=== PATIENT | female | born 1955 | race Caucasian/White ===

== ENCOUNTER 2016-07-03 15:29 | Emergency (ER) | payer OTHER ==
[~2016-07-03] VITALS: Ht 167.6 cm; Wt 89.1 kg
[~2016-07-03 15:29] MED LIST: CLON0.5T3 PO; HYDR-5688 PO; NUTR-7 PO; ONDA4TAB7 SL
[2016-07-03 15:35] VITALS: TEMP 36.6; Ht 167.6 cm; Wt 89.1 kg
[2016-07-03 16:25] LABS: BASO % 0.4 %; BASO ABS # 0.03 K/uL (0-0.2); COMPLETE YES; EOS % 2.3 %; HEMATOCRIT 41.9 % (37-47); IG% 0.3 %; LYMPH % 34.2 %; LYMPH ABS # 2.42 K/uL (1.2-3.4); MEAN CELL VOLUME 90.3 fL (80-100); MEAN CORPUSCULAR HEMOGLOBIN 30.4 pg (25-34); MEAN CORPUSCULAR HGB CONC 33.7 g/dl (32-36); MEAN PLATELET VOLUME 11.7 fL (7.4-10.4); MONO % 5.1 %; NEUT % 57.7 %; PLATELET COUNT 186 K/uL (130-400); RED BLOOD COUNT 4.64 M/uL (4.2-5.4); WHITE BLOOD COUNT 7.07 K/uL (4.8-10.8)
[2016-07-03] MEDS ORDERED: ONDANSETRON INJ 2 MG/ML 2 ML VIAL IV STA (16:28)
[2016-07-03] MEDS ORDERED: SODIUM CHLORIDE 0.9% 1000ML 1,000 ML IV STA (16:28)
[2016-07-03] MEDS ORDERED: KETOROLAC TROMETHAMINE 30 MG/ML VIAL IV STA (16:28)
--- NOTE | 2016-07-03 16:41 | EMERGENCY ROOM VISIT NOTE ---
History Report prepared by Palak: Lc Ellis Under the Supervision of: Dr. Kevin Perales D.O. First contact with patient: 16:04 Chief Complaint: NAUSEA Stated Complaint: NAUSEA History of Present Illness The patient is a 61 year old female who presents to the Emergency Room with complaints of waxing and waning light headedness that she has been experiencing for the past three weeks. The patient states that she is not dizzy, but was having a hard time keeping her balance. The light headedness is constant when it onsets; there is nothing that makes it better or worse. She has also been getting headaches frequently this past week. Her headaches begin in the crown of her head and radiate down in to her neck. The patient is currently experiencing her light headedness, but does not have a headache. She also made note of an episode in the past when she was diagnosed with a bowel obstruction. During this episode she experienced sternal chest pain. She is currently experiencing this chest pain over her sternum as well. all taking off her shirt. She has no shortness of breath or radiation with this. It is currently resolved. She gets no exertional symptoms. She is no history of diabetes, hypertension, hyperlipidemia, CAD or previous heart attacks. She denies change in vision, fevers, nausea, vomiting, diarrhea, pain with urination, and melena. 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 A total of 10 systems reviewed and were otherwise negative. Past Medical & Surgical Surgical Problems: (1) History of appendectomy (2) History of cholecystectomy Family History Cancer Diabetes mellitus Heart disease Hypertension Kidney stones Social History Smoking Status: Former Smoker Alcohol Use: occasionally Marital Status: single Housing Status: lives alone Occupation Status: employed Current/Historical Medications Scheduled Clonazepam (Clonazepam), 0.25 MG PO Q4 Scheduled PRN Ibuprofen (Advil), 200 MG PO Q8 PRN for Pain Allergies Coded Allergies: Fluoxetine (Verified Allergy, Intermediate, swelling and rash, 07/03/16) Metronidazole (Verified Allergy, Unknown, swelling/hives, 07/03/16) Physical Exam Vital Signs Date Time Temp Pulse Resp B/P Pulse Ox O2 Delivery O2 Flow Rate FiO2 07/03/16 19:08 61 18 161/95 98 07/03/16 17:28 52 16 140/75 100 Room Air 07/03/16 16:30 58 07/03/16 15:35 36.6 62 20 160/94 97 Room Air Physical Exam GENERAL: Sitting up in bed, well nourished, no distress, non-toxic EYE EXAM: normal conjunctiva, PERRL and EOM's intact EARS: Cerumen impacted bilaterally, unable to visualize TMs. OROPHARYNX: no exudate, no erythema, lips, buccal mucosa, and tongue normal and mucous membranes are moist NECK: supple, no nuchal rigidity, no adenopathy, non-tender LUNGS: Clear to auscultation. Normal chest wall mechanics HEART: no murmurs, S1 normal and S2 normal ABDOMEN: abdomen soft, non-tender, normo-active bowel sounds, no masses, no rebound or guarding. BACK: Back is symmetrical on inspection and there is no deformity, no midline tenderness, no CVA tenderness. SKIN: no rashes and no bruising UPPER EXTREMITIES: upper extremities are grossly normal. LOWER EXTREMITIES: No pitting edema. NEURO EXAM: Normal sensorium, cranial nerves II-XII intact, normal speech, no weakness of arms, no weakness of legs. No drift. Finger to nose intact. Gross sensation intact. Rapid alternating movements of the upper extremities intact. Medical Decision & Procedures ER Provider Diagnostic Interpretation: Xray results per the radiologist and my interpretation. Other results have been interpreted by the radiologist and reviewed by me. ABDOMEN AND PELVIS CT WITH IV CONTRAST CT DOSE: HISTORY: Pain diffuse abd pain TECHNIQUE: Multiaxial CT images of the abdomen and pelvis were performed following the use of intravenous contrast. COMPARISON STUDY: 02/19/2015 FINDINGS: Lung bases are clear. Several hepatic microcysts unchanged. Gallbladder is negative for distention. Pancreas appears uniform. Spleen is unremarkable. Cortical scarring of the kidneys unchanged in the prior study. No evidence for obstructive change to the kidneys. There bowel pattern within the abdomen and pelvis is nonobstructive. Atelectatic change at the arterial vasculature of the abdomen and pelvis unaltered from the prior study. No major new or interval finding. Short segment right common iliac artery stent placement. No evidence for free fluid within the pelvic cul-de-sac. Nonobstructive bowel pattern. Slight bladder wall trabeculation. IMPRESSION: Chronic change. No acute process. Electronically signed by: Edwin Hollins M.D. 07/03/2016 5:48 PM Dictated Date/Time: 07/03/2016 5:44 PM CHEST ONE VIEW PORTABLE CLINICAL HISTORY: dizzy mental status change COMPARISON STUDY: No previous studies for comparison. FINDINGS: The bones soft tissues and hemidiaphragms are normal. The cardiomediastinal silhouette is normal. The lungs are clear. The pulmonary vasculature is normal. IMPRESSION: Negative chest. Electronically signed by: Edwin Hollins M.D. 07/03/2016 4:56 PM Dictated Date/Time: 07/03/2016 4:[address] NON[address]AST CT DOSE: 1697.90 mGy.cm HISTORY: Mental status change dizzy TECHNIQUE: Multiaxial CT images of the head were performed without the use of intravenous contrast. Comparison: None. Findings: The paranasal sinuses and mastoid air cells are clear. The calvarium and skull base are intact. The ventricles and sulci are within normal limits. There is no mass, hematoma, midline shift, or acute infarct. Impression: No acute intracranial abnormality. Electronically signed by: Edwin Hollins M.D. 07/03/2016 5:43 PM Dictated Date/Time: 07/03/2016 5:42 PM Laboratory Results 07/03/16 16:15 Red Blood Count 4.64, Mean Corpuscular Volume 90.3, Mean Corpuscular Hemoglobin 30.4, Mean Corpuscular Hemoglobin Concent 33.7, Mean Platelet Volume 11.7, Neutrophils (%) (Auto) 57.7, Lymphocytes (%) (Auto) 34.2, Monocytes (%) (Auto) 5.1, Eosinophils (%) (Auto) 2.3, Basophils (%) (Auto) 0.4, Neutrophils # (Auto) 4.08, Lymphocytes # (Auto) 2.42, Monocytes # (Auto) 0.36, Eosinophils # (Auto) 0.16, Basophils # (Auto) 0.03 07/03/16 16:15 Test 07/03/16 16:15 07/03/16 16:50 07/03/16 18:12 White Blood Count 7.07 K/uL (4.8-10.8) Red Blood Count 4.64 M/uL (4.2-5.4) Hemoglobin 14.1 g/dL (12.0-16.0) Hematocrit 41.9 % (37-47) Mean Corpuscular Volume 90.3 fL (80-100) Mean Corpuscular Hemoglobin 30.4 pg (25-34) Mean Corpuscular Hemoglobin Concent 33.7 g/dl (32-36) Platelet Count 186 K/uL (130-400) Mean Platelet Volume 11.7 fL (7.4-10.4) Neutrophils (%) (Auto) 57.7 % Lymphocytes (%) (Auto) 34.2 % Monocytes (%) (Auto) 5.1 % Eosinophils (%) (Auto) 2.3 % Basophils (%) (Auto) 0.4 % Neutrophils # (Auto) 4.08 K/uL (1.4-6.5) Lymphocytes # (Auto) 2.42 K/uL (1.2-3.4) Monocytes # (Auto) 0.36 K/uL (0.11-0.59) Eosinophils # (Auto) 0.16 K/uL (0-0.5) Basophils # (Auto) 0.03 K/uL (0-0.2) RDW Standard Deviation 43.2 fL (36.4-46.3) RDW Coefficient of Variation 13.2 % (11.5-14.5) Immature Granulocyte % (Auto) 0.3 % Immature Granulocyte # (Auto) 0.02 K/uL (0.00-0.02) Anion Gap 9.0 mmol/L (3-11) Est Creatinine Clear Calc Drug Dose 78.1 ml/min Estimated GFR () 85.7 Estimated GFR (Non- 74.0 BUN/Creatinine Ratio 14.4 (10-20) Calcium Level 9.0 mg/dl (8.5-10.1) Total Bilirubin 0.4 mg/dl (0.2-1) Direct Bilirubin < 0.1 mg/dl (0-0.2) Aspartate Amino Transf (AST/SGOT) 26 U/L (15-37) Alanine Aminotransferase (ALT/SGPT) 40 U/L (12-78) Alkaline Phosphatase 101 U/L (45-117) Total Protein 7.9 gm/dl (6.4-8.2) Albumin 3.9 gm/dl (3.4-5.0) Lipase 148 U/L (73-393) Urine Color YELLOW Urine Appearance CLEAR (CLEAR) Urine pH 5.0 (4.5-7.5) Urine Specific Ponce 1.005 (1.000-1.030) Urine Protein NEG (NEG) Urine Glucose (UA) NEG (NEG) Urine Ketones NEG (NEG) Urine Occult Blood TRACE (NEG) Urine Nitrite NEG (NEG) Urine Bilirubin NEG (NEG) Urine Urobilinogen NEG (NEG) Urine Leukocyte Esterase NEG (NEG) Urine WBC (Auto) 0 /hpf (0-5) Urine RBC (Auto) 0-4 /hpf (0-4) Urine Hyaline Casts (Auto) 0 /lpf (0-5) Urine Epithelial Cells (Auto) 0-5 /lpf (0-5) Urine Bacteria (Auto) NEG (NEG) Troponin I < 0.015 ng/ml (0-0.045) Laboratory results per my review. Medications Administered Medications (Trade) Dose Ordered Sig/Vikas Route Start Time Stop Time Status Last Admin Dose Admin Sodium Chloride (Nss 1000ml) 1,000 ml @ 999 mls/hr Q1H1M STAT IV 07/03/16 16:28 07/03/16 17:28 DC 07/03/16 16:45 999 MLS/HR Ondansetron HCl (Zofran Inj) 4 mg NOW STAT IV 07/03/16 16:28 07/03/16 16:30 DC 07/03/16 16:45 4 MG Ketorolac Tromethamine (Toradol Inj) 30 mg NOW STAT IV 07/03/16 16:28 07/03/16 16:31 DC 07/03/16 16:48 30 MG ECG Indication: weakness Rate (beats per minute): 52 Rhythm: sinus bradycardia Findings: Q waves (Septal), no ectopy Comparison ECG Date: no prior available ED Course ED COURSE: Vital signs were reviewed and showed tachycardiac heart rate. The patients medical record was reviewed The above diagnostic studies were performed and reviewed. ED treatments and interventions as stated above. 1617: The patient was evaluated in room B12. A complete history and physical examination was performed. 1628: Ordered Toradol 30 mg IV, Zofran 4 mg IV, Sodium Chloride 1000 mL @ 999 mL /hr IV. 1731: I checked on the patient at this time, she was on her way to CT. 1802: I checked on the patient at this time, she was resting in bed. 1846: Upon reevaluation, the patient is feeling well.I discussed my findings with the patient and she understands and agrees with the treatment plan. Based on the patients age, coexisting illnesses, exam and lab findings the decision to treat as an outpatient was made. The patient remained stable while under my care. The patient appeared well at the time of discharge. Medical Decision Differential diagnosis: Etiologies such as migraine headache, meningitis, sinusitis, CO exposure, ICH, SAH, infection, tumor, headache, sinus thrombosis, arterial dissection, as well as others were entertained. Patient is a 61-year-old female who presents the ER for abdominal discomfort which she notes occurs after eating something has been present for the past several months. She does follow with GI for this. She also presents for lightheadedness which is been present for the past week. She notes it comes and goes intermittently throughout the day. She denies any weakness or numbness in arms or legs. She doesn't mild headache today. No fevers. No cough or runny nose. No stiff neck. No signs of meningitis or encephalitis. She is completely neurologically intact. No cerebellar symptoms on exam. She is able to walk without difficulty. CBC along with BMP, LFTs, bilirubin and lipase are negative. Troponins are negative 2 with an unremarkable EKG. Chest x-ray along with CT head and abdomen pelvis was normal. Patient was updated regards to her symptoms. I do believe that this is likely secondary to her poor by mouth intake as she has not been eating and drinking much recently. Her symptoms did improve following a bolus normal saline and Zofran. Discussed with Pt concerning signs and symptoms to watch out for. Pt was instructed to follow up with their PCP and discussed with the patient their option to return to the ED at anytime for persistent or worsening symptoms. The appropriate anticipatory guidance and out-patient management, including indications for return to the emergency department, were explained at length to the patient and understood. Impression Primary Impression: Diffuse abdominal pain Additional Impression: Light headed Scribe Attestation The scribe's documentation has been prepared under my direction and personally reviewed by me in its entirety. I confirm that the note above accurately reflects all work, treatment, procedures, and medical decision making performed by me. Departure Information Dispostion Home / Self-Care Referrals Donald Rowe M.D. (PCP) Forms HOME CARE DOCUMENTATION FORM, IMPORTANT VISIT INFORMATION Patient Instructions [facility] Additional Instructions Please follow up with your primary care doctor with in the next 24 hours. Any worsening of your symptoms, please return to the ED immediately. This includes passing out, worsening headache, change in vision, weakness in your arms or legs , persistent nausea vomiting, or any other concerning signs or symptoms from your standpoint. Please follow up with your nutrition partner. Problem Qualifiers
[2016-07-03] MEDS ORDERED: OPTIRAY 320 IV PRN (16:45)
--- NOTE | 2016-07-03 16:57 | DIAGNOSTIC IMAGING REPORT ---
CHEST ONE VIEW PORTABLE CLINICAL HISTORY: dizzy mental status change COMPARISON STUDY: No previous studies for comparison. FINDINGS: The bones soft tissues and hemidiaphragms are normal. The cardiomediastinal silhouette is normal. The lungs are clear. The pulmonary vasculature is normal. IMPRESSION: Negative chest. Electronically signed by: Edwin Hollins M.D. 07/03/2016 4:56 PM Dictated Date/Time: 07/03/2016 4:56 PM
[2016-07-03] MEDS ORDERED: KLN5X PO (17:01)
[2016-07-03] MEDS ORDERED: IBUP-1050 PO (17:02)
[2016-07-03 17:06] LABS: ALT/SGPT 40 U/L (12-78); AST/SGOT 26 U/L (15-37); BLOOD UREA NITROGEN 12 mg/dl (7-18); BUN/CREATININE RATIO 14.4 (10-20); CARBON DIOXIDE 26 mmol/L (21-32); CHLORIDE 109 mmol/L (98-107); CREATININE 0.85 mg/dl (0.60-1.20); GLUCOSE 90 mg/dl (70-99); SODIUM 144 mmol/L (136-145)
[2016-07-03 17:07] LABS: MANUAL MICROSCOPIC REQUIRED? NO; REVIEW REQ? NO; URINE APPEARANCE CLEAR (CLEAR); URINE BILIRUBIN NEG (NEG); URINE COLOR YELLOW; URINE EPITHELIAL CELL AUTO 0-5 /lpf (0-5); URINE NITRITE NEG (NEG); URINE SPECIFIC GRAVITY 1.005 (1.000-1.030); UROBILINOGEN NEG (NEG); ZZUR CULT IF INDIC CLEAN CATCH NO
[2016-07-03 17:11] LABS: ALKALINE PHOSPHATASE 101 U/L (45-117)
--- NOTE | 2016-07-03 17:44 | DIAGNOSTIC IMAGING REPORT ---
HEAD CT NONCONTRAST CT DOSE: 1697.90 mGy.cm HISTORY: Mental status change dizzy TECHNIQUE: Multiaxial CT images of the head were performed without the use of intravenous contrast. Comparison: None. Findings: The paranasal sinuses and mastoid air cells are clear. The calvarium and skull base are intact. The ventricles and sulci are within normal limits. There is no mass, hematoma, midline shift, or acute infarct. Impression: No acute intracranial abnormality. Electronically signed by: Edwin Hollins M.D. 07/03/2016 5:43 PM Dictated Date/Time: 07/03/2016 5:42 PM
--- NOTE | 2016-07-03 17:50 | DIAGNOSTIC IMAGING REPORT ---
ABDOMEN AND PELVIS CT WITH IV CONTRAST CT DOSE: HISTORY: Pain diffuse abd pain TECHNIQUE: Multiaxial CT images of the abdomen and pelvis were performed following the use of intravenous contrast. COMPARISON STUDY: 02/19/2015 FINDINGS: Lung bases are clear. Several hepatic microcysts unchanged. Gallbladder is negative for distention. Pancreas appears uniform. Spleen is unremarkable. Cortical scarring of the kidneys unchanged in the prior study. No evidence for obstructive change to the kidneys. There bowel pattern within the abdomen and pelvis is nonobstructive. Atelectatic change at the arterial vasculature of the abdomen and pelvis unaltered from the prior study. No major new or interval finding. Short segment right common iliac artery stent placement. No evidence for free fluid within the pelvic cul-de-sac. Nonobstructive bowel pattern. Slight bladder wall trabeculation. IMPRESSION: Chronic change. No acute process. Electronically signed by: Edwin Hollins M.D. 07/03/2016 5:48 PM Dictated Date/Time: 07/03/2016 5:44 PM
[2016-07-03 19:08] VITALS: BP 161/95; PULSE 61; O2SAT 98
[2016-11-17] MEDS ORDERED: DICL-201 PO (14:33)
== END 2016-07-03 19:08 | disposition home or self-care (01) ==
LOC: C.EDB 15:31
DX: R10.84 Generalized abdominal pain (principal); R42 Dizziness and giddiness; Z87.891 Personal history of nicotine dependence

== ENCOUNTER 2016-07-30 12:54 | Emergency (ER) | payer OTHER ==
[~2016-07-30] VITALS: Ht 167.6 cm; Wt 86.0 kg
[~2016-07-30 12:54] MED LIST changes: -CLON0.5T3 PO; -HYDR-5688 PO; +IBUP-1050 PO; +KLN5X PO; -NUTR-7 PO; -ONDA4TAB7 SL
[2016-07-30 12:56] VITALS: TEMP 36.6; Ht 167.6 cm; Wt 86.0 kg
[2016-07-30] MEDS ORDERED: SODIUM CHLORIDE 0.9% 1000ML 1,000 ML IV STA (13:04)
[2016-07-30] MEDS ORDERED: ONDANSETRON 8 MG/54 ML D5W IV ONE (13:30)
[2016-07-30 13:34] LABS: BASO % 0.4 %; BASO ABS # 0.03 K/uL (0-0.2); COMPLETE YES; EOS % 2.7 %; HEMATOCRIT 42.4 % (37-47); IG% 0.1 %; LYMPH % 21.9 %; LYMPH ABS # 1.82 K/uL (1.2-3.4); MEAN CELL VOLUME 89.8 fL (80-100); MEAN CORPUSCULAR HEMOGLOBIN 30.5 pg (25-34); MONO % 5.8 %; NEUT % 69.1 %; PLATELET COUNT 183 K/uL (130-400); RED BLOOD COUNT 4.72 M/uL (4.2-5.4)
[2016-07-30 13:37] LABS: MANUAL MICROSCOPIC REQUIRED? NO; REVIEW REQ? NO; URINE APPEARANCE CLEAR (CLEAR); URINE BILIRUBIN NEG (NEG); URINE COLOR YELLOW; URINE EPITHELIAL CELL AUTO 0-5 /lpf (0-5); URINE NITRITE NEG (NEG); URINE SPECIFIC GRAVITY 1.002 (1.000-1.030); UROBILINOGEN NEG (NEG); ZZUR CULT IF INDIC CLEAN CATCH NO
[2016-07-30 13:51] LABS: ALT/SGPT 33 U/L (12-78); BLOOD UREA NITROGEN 11 mg/dl (7-18); CALCIUM 9.5 mg/dl (8.5-10.1); CARBON DIOXIDE 22 mmol/L (21-32); CHLORIDE 108 mmol/L (98-107); CREATININE 0.81 mg/dl (0.60-1.20); GLUCOSE 94 mg/dl (70-99); POTASSIUM 4.1 mmol/L (3.5-5.1); SODIUM 141 mmol/L (136-145)
[2016-07-30 13:54] LABS: ALKALINE PHOSPHATASE 117 U/L (45-117); AST/SGOT 24 U/L (15-37)
--- NOTE | 2016-07-30 14:05 | DIAGNOSTIC IMAGING REPORT ---
CT OF THE ABDOMEN AND PELVIS WITHOUT CONTRAST CLINICAL HISTORY: Lower abdominal pain and nausea. History of bowel obstruction. COMPARISON STUDY: CT of the abdomen and pelvis July 03, 2016. TECHNIQUE: Axial images of the abdomen and pelvis were obtained without IV contrast. Images were reviewed in the axial, sagittal, and coronal planes. FINDINGS: Lung bases are clear. Evaluation of the abdomen and pelvis is suboptimal on this unenhanced exam. Unenhanced images of liver, spleen, adrenal glands, kidneys and pancreas are normal. There is no hydronephrosis. A calcification within the right renal sinus is likely vascular. There is extensive atherosclerotic plaque of the aortoiliac system. There is no aneurysmal dilatation of the aorta. The caliber of small and large bowel is normal. The appendix is not visualized. There is no right lower quadrant inflammation. No lymphadenopathy is present. No ascites is present. No suspicious osseous lesions are noted. IMPRESSION: No acute process within the abdomen or pelvis on unenhanced exam. No bowel obstruction. Electronically signed by: Christ Justice M.D. 07/30/2016 2:03 PM Dictated Date/Time: 07/30/2016 1:58 PM
[2016-07-30] MEDS ORDERED: ONDANSETRON HOME PACK 4MG OD TAB PO ONE (16:00)
[2016-07-30 16:35] VITALS: BP 159/96; PULSE 59; O2SAT 97
--- NOTE | 2016-07-30 20:23 | EMERGENCY ROOM VISIT NOTE ---
History Report prepared by Palak: Vasyl Rausch Under the Supervision of: Dr. Ubaldo Borrero M.D. First contact with patient: 13:04 Chief Complaint: ABDOMINAL PAIN Stated Complaint: DIZZY, STOMACH, DIARRHEA-BAD Nursing Triage Summary: triage note: pt to the ED with c/o diarrhea and feels like her new BP med is "killing her intestines" no vomitting sx since wednesday c/o diffuse abd pain pt states she was told not to take her bp med per PMD due to her current sx History of Present Illness The patient is a 61 year old female who presents to the Emergency Room with complaints of persistent abdominal pain that started 5 days ago. Currently, she rates the pain as a 3 or a 4 out of 10 in severity. 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 The patient's associated symptoms include nausea, leg and arm weakness, and dizziness. Her dizziness started today. The patient also had 2 hours of diarrhea today. Her bowels have been normal before today. The patient states that she has acid reflux discomfort in her chest, and the pill has made her discomfort worse. She additionally states that her legs are currently more swollen than usual. She notes that her primary care physician prescribed her 25 mg Atenolol last week, and her symptoms started ever since she started taking it. The patient called her primary care physician's office yesterday, and was told to discontinue her medicine. She has no recent antibiotic use. Pt denies LOC, headache, fevers, chills, diaphoresis, visual changes, neck pain, breathing difficulties, vomiting, back pain, melena, hematochezia, urinary symptoms, numbness, lymphadenopathy, rash, or other complaints. Source of History: patient Onset: 5 days ago Position: abdomen Symptom Intensity: currently rates the pain as a 3 or 4 out of 10 in severity Timing: other (persistent) Associated Symptoms: + nausea, + weakness (leg and arm) Note: Associated symptoms: Acid reflux discomfort in chest, dizziness, legs more swollen than usual. Review of Systems See HPI for pertinent positives and negatives. A total of ten systems were reviewed and were otherwise negative. Past Medical & Surgical Surgical Problems: (1) History of appendectomy (2) History of cholecystectomy Family History Cancer Diabetes mellitus Heart disease Hypertension Kidney stones Social History Smoking Status: Current Every Day Smoker Alcohol Use: occasionally Marital Status: single Housing Status: lives alone Occupation Status: employed Current/Historical Medications Scheduled Clonazepam (Clonazepam), 0.25 MG PO Q4 Diclofenac (Voltaren), 75 MG PO BID Allergies Coded Allergies: Fluoxetine (Verified Allergy, Intermediate, swelling and rash, 07/30/16) Metronidazole (Verified Allergy, Unknown, swelling/hives, 07/30/16) Physical Exam Vital Signs Date Time Temp Pulse Resp B/P Pulse Ox O2 Delivery O2 Flow Rate FiO2 07/30/16 16:35 59 16 159/96 97 07/30/16 16:29 59 16 159/96 97 Room Air 07/30/16 14:00 55 16 159/83 96 Room Air 07/30/16 13:46 57 07/30/16 13:43 54 18 161/89 96 Room Air 07/30/16 12:56 36.6 67 16 181/100 98 Room Air Physical Exam GENERAL: Awake, alert, uncomfortable appearing. HENT: Normocephalic, atraumatic. Oropharynx unremarkable. EYES: Normal conjunctiva. Sclera non-icteric. NECK: Supple. No nuchal rigidity. FROM. No JVD. RESPIRATORY: Clear to auscultation. CARDIAC: Regular rate, normal rhythm. Extremities warm and well perfused. Pulses equal. ABDOMEN: Soft, non-distended. Epigastric, and right and left lower tenderness. No rebound or guarding. No masses. RECTAL: Deferred. MUSCULOSKELETAL: Chest examination reveals no tenderness. The back is symmetrical on inspection without obvious abnormality. There is no CVA tenderness to palpation. No joint edema. LOWER EXTREMITIES: Calves are equal size bilaterally and non-tender. No edema. No discoloration. NEURO: Normal sensorium. No sensory or motor deficits noted. SKIN: No rash or jaundice noted. Medical Decision & Procedures ER Provider Diagnostic Interpretation: Radiology results as stated below per my review and radiologist interpretation CT OF THE ABDOMEN AND PELVIS WITHOUT CONTRAST CLINICAL HISTORY: Lower abdominal pain and nausea. History of bowel obstruction. COMPARISON STUDY: CT of the abdomen and pelvis July 03, 2016. TECHNIQUE: Axial images of the abdomen and pelvis were obtained without IV contrast. Images were reviewed in the axial, sagittal, and coronal planes. FINDINGS: Lung bases are clear. Evaluation of the abdomen and pelvis is suboptimal on this unenhanced exam. Unenhanced images of liver, spleen, adrenal glands, kidneys and pancreas are normal. There is no hydronephrosis. A calcification within the right renal sinus is likely vascular. There is extensive atherosclerotic plaque of the aortoiliac system. There is no aneurysmal dilatation of the aorta. The caliber of small and large bowel is normal. The appendix is not visualized. There is no right lower quadrant inflammation. No lymphadenopathy is present. No ascites is present. No suspicious osseous lesions are noted. IMPRESSION: No acute process within the abdomen or pelvis on unenhanced exam. No bowel obstruction. Electronically signed by: Christ Justice M.D. 07/30/2016 2:03 PM Dictated Date/Time: 07/30/2016 1:58 PM Laboratory Results 07/30/16 13:18 Red Blood Count 4.72, Mean Corpuscular Volume 89.8, Mean Corpuscular Hemoglobin 30.5, Mean Corpuscular Hemoglobin Concent 34.0, Mean Platelet Volume 12.0, Neutrophils (%) (Auto) 69.1, Lymphocytes (%) (Auto) 21.9, Monocytes (%) (Auto) 5.8, Eosinophils (%) (Auto) 2.7, Basophils (%) (Auto) 0.4, Neutrophils # (Auto) 5.74, Lymphocytes # (Auto) 1.82, Monocytes # (Auto) 0.48, Eosinophils # (Auto) 0.22, Basophils # (Auto) 0.03 07/30/16 13:18 Test 07/30/16 13:18 07/30/16 13:19 White Blood Count 8.30 K/uL (4.8-10.8) Red Blood Count 4.72 M/uL (4.2-5.4) Hemoglobin 14.4 g/dL (12.0-16.0) Hematocrit 42.4 % (37-47) Mean Corpuscular Volume 89.8 fL (80-100) Mean Corpuscular Hemoglobin 30.5 pg (25-34) Mean Corpuscular Hemoglobin Concent 34.0 g/dl (32-36) Platelet Count 183 K/uL (130-400) Mean Platelet Volume 12.0 fL (7.4-10.4) Neutrophils (%) (Auto) 69.1 % Lymphocytes (%) (Auto) 21.9 % Monocytes (%) (Auto) 5.8 % Eosinophils (%) (Auto) 2.7 % Basophils (%) (Auto) 0.4 % Neutrophils # (Auto) 5.74 K/uL (1.4-6.5) Lymphocytes # (Auto) 1.82 K/uL (1.2-3.4) Monocytes # (Auto) 0.48 K/uL (0.11-0.59) Eosinophils # (Auto) 0.22 K/uL (0-0.5) Basophils # (Auto) 0.03 K/uL (0-0.2) RDW Standard Deviation 44.3 fL (36.4-46.3) RDW Coefficient of Variation 13.4 % (11.5-14.5) Immature Granulocyte % (Auto) 0.1 % Immature Granulocyte # (Auto) 0.01 K/uL (0.00-0.02) Anion Gap 11.0 mmol/L (3-11) Est Creatinine Clear Calc Drug Dose 80.5 ml/min Estimated GFR () 90.9 Estimated GFR (Non- 78.4 BUN/Creatinine Ratio 14.0 (10-20) Calcium Level 9.5 mg/dl (8.5-10.1) Total Bilirubin 0.5 mg/dl (0.2-1) Direct Bilirubin < 0.1 mg/dl (0-0.2) Aspartate Amino Transf (AST/SGOT) 24 U/L (15-37) Alanine Aminotransferase (ALT/SGPT) 33 U/L (12-78) Alkaline Phosphatase 117 U/L (45-117) Total Protein 8.3 gm/dl (6.4-8.2) Albumin 3.9 gm/dl (3.4-5.0) Lipase 138 U/L (73-393) Urine Color YELLOW Urine Appearance CLEAR (CLEAR) Urine pH 5.0 (4.5-7.5) Urine Specific [place] 1.002 (1.000-1.030) Urine Protein NEG (NEG) Urine Glucose (UA) NEG (NEG) Urine Ketones NEG (NEG) Urine Occult Blood TRACE (NEG) Urine Nitrite NEG (NEG) Urine Bilirubin NEG (NEG) Urine Urobilinogen NEG (NEG) Urine Leukocyte Esterase NEG (NEG) Urine WBC (Auto) 0 /hpf (0-5) Urine RBC (Auto) 0-4 /hpf (0-4) Urine Hyaline Casts (Auto) 1-5 /lpf (0-5) Urine Epithelial Cells (Auto) 0-5 /lpf (0-5) Urine Bacteria (Auto) NEG (NEG) Laboratory results reviewed by me Medications Administered Medications (Trade) Dose Ordered Sig/Vikas Route Start Time Stop Time Status Last Admin Dose Admin Sodium Chloride (Nss 1000ml) 1,000 ml @ 125 mls/hr Q8H STAT IV 07/30/16 13:04 07/30/16 17:08 DC 07/30/16 13:59 125 MLS/HR Ondansetron HCl (Zofran 8mg Iv) 8 mg NOW ONCE IV 07/30/16 13:30 07/30/16 13:31 DC 07/30/16 13:59 8 MG Ondansetron HCl (ZOFRAN ODT 4MG Home Pack) 1 homepack UD ONCE PO 07/30/16 16:00 07/30/16 16:01 DC 07/30/16 16:29 1 HOMEPACK ECG Indication: abdominal pain Rate (beats per minute): 54 Rhythm: sinus bradycardia Findings: nonspecific-ST abn, no acute ischemic change, no ectopy, other (left axis deviation, LVH) ED Course 1304: Ordered NSS 1000 ml @ 125 mls/hr IV. 1324: The patient was evaluated in room C8. A complete history and physical exam was performed. 1330: Ordered Zofran IV 8 mg. 1550: I reevaluated the patient and she is resting comfortably. Discussed results and discharge instructions: She verbalized understanding and agreement. The patient is ready for discharge. 1600: Ordered Zofran ODT 4MG Home pack 1 homepack PO. Medical Decision Triage Nursing notes reviewed. The patient's presentation and history were concerning for abdominal pain with a history of PSBO on prior record review. Etiologies such as appendicitis, diverticulitis, obstruction, inflammatory bowel disease, renal colic, PUD, biliary pathology, pancreatitis, mesenteric ischemia, aortic pathology, infections, genitourinary, UTI, perforated viscus, as well as others were entertained. Patient was evaluated. She declined analgesia. She was tender in the lower abdomen and epigastrium. The patient was given normal saline hydration and Zofran for her nausea. Blood work and CT imaging were performed. ECG was unremarkable. The patient was hypertensive did not take her atenolol today. This improved without direct intervention. Her CBC, chemistry panel, urinalysis , LFTs, lipase and CT were unremarkable. I'm reassessment the patient was doing better. The exact etiology of her symptoms was not obvious at this time. I do not suspect cardiac sources. The patient had an unremarkable physical examination otherwise. She believes it may be related to her blood pressure medication which she had discontinued. She has a follow-up pending for tomorrow with her primary physician. I did offer her some nausea medicine in case her nausea returns and she accepted. Since she is doing well there's no sign of bowel obstruction or other emergent pathology I discussed conservative management and discharged to home. The patient was very much in agreement. By the evaluation outlined above other emergent etiologies such as those listed in the differential, as well as others, were deemed relatively unlikely. The patient and family were informed about the findings as listed above. All questions were answered and they were pleased with the treatment. Return instructions were outlined and the patient was discharged in stable condition. The patient was referred to her PCP for follow-up tomorrow for a recheck of the current condition. The chart was completed utilizing [employer] Speech voice recognition software. Grammatical errors, random word insertions, pronoun errors, and incomplete sentences are an occasional consequence of this system due to software limitations, ambient noise, and hardware issues. Any formal questions or concerns about the content, text, or information contained within the body of this dictation should be directly addressed to the physician for clarification. Impression Primary Impression: Lower abdominal pain Additional Impression: Diarrhea Scribe Attestation The scribe's documentation has been prepared under my direction and personally reviewed by me in its entirety. I confirm that the note above accurately reflects all work, treatment, procedures, and medical decision making performed by me. Departure Information Dispostion Home / Self-Care Referrals Donald Rowe M.D. (PCP) Forms HOME CARE DOCUMENTATION FORM, IMPORTANT VISIT INFORMATION Patient Instructions My [facility] Additional Instructions ABDOMINAL PAIN INSTRUCTIONS: Acetaminophen(Tylenol) may be used for fever or pain. Use 1000mg every six hours as needed. Avoid using more than 4000mg in a 24 hour period. Zofran 4 mg oral dissolving tablets: take one tablet and allow it to melt in your mouth every 4 hours as needed for nausea. Rest and drink plenty of fluids as tolerated. Slow sips of water or sports drinks are recommended instead of large amounts all at once. Once your stomach is settled start with a clear liquid diet (jello, soup broth, etc.) and then advance as tolerated. You should avoid full, heavy meals for about 24 hrs from the time your symptoms resolved. Return to the ER immediately for worsening or persistent abdominal pain, vomiting, fevers, chest pains, difficulty breathing, black or bloody stools, worsening of your condition, or as needed. Follow up with your primary physician tomorrow as discussed for a recheck of your current condition. Problem Qualifiers
[2016-11-17] MEDS ORDERED: DICL-201 PO (14:33)
== END 2016-07-30 16:37 | disposition home or self-care (01) ==
LOC: C.EDB 12:55 → C.EDC 16:37
DX: R10.30 Lower abdominal pain, unspecified (principal); R19.7 Diarrhea, unspecified; Z79.899 Other long term (current) drug therapy; F17.210 Nicotine dependence, cigarettes, uncomplicated

== ENCOUNTER 2016-11-17 22:19 | Emergency (ER) | payer OTHER ==
[~2016-11-17] VITALS: Ht 167.6 cm; Wt 88.1 kg
[~2016-11-17 22:19] MED LIST changes: +DICL-201 PO; -IBUP-1050 PO
[2016-11-17 22:25] VITALS: TEMP 36.4; Ht 167.6 cm; Wt 88.1 kg
[2016-11-17] MEDS ORDERED: ONDA4TAB9 PO (22:44)
[2016-11-17] MEDS ORDERED: CLON0.5T3 PO (22:44)
[2016-11-17] MEDS ORDERED: OMEP20CA9 PO (22:44)
[2016-11-17] MEDS ORDERED: ONDANSETRON INJ 2 MG/ML 2 ML VIAL IV STA (22:49)
[2016-11-17] MEDS ORDERED: SODIUM CHLORIDE 0.9% 1000ML 1,000 ML IV STA (22:49)
[2016-11-17] MEDS ORDERED: OPTIRAY 320 IV PRN (23:00)
[2016-11-17 23:14] LABS: BASO % 0.6 %; BASO ABS # 0.04 K/uL (0-0.2); COMPLETE YES; EOS % 4.1 %; HEMATOCRIT 41.8 % (37-47); IG% 0.3 %; LYMPH % 30.9 %; LYMPH ABS # 2.02 K/uL (1.2-3.4); MEAN CELL VOLUME 90.3 fL (80-100); MEAN CORPUSCULAR HEMOGLOBIN 29.6 pg (25-34); MEAN CORPUSCULAR HGB CONC 32.8 g/dl (32-36); MEAN PLATELET VOLUME 11.6 fL (7.4-10.4); MONO % 6.4 %; NEUT % 57.7 %; PLATELET COUNT 186 K/uL (130-400); RED BLOOD COUNT 4.63 M/uL (4.2-5.4); WHITE BLOOD COUNT 6.53 K/uL (4.8-10.8)
[2016-11-17 23:44] LABS: ALB/GLOB RATIO 0.9 (0.9-2); BUN/CREATININE RATIO 14.8 (10-20); CALCIUM 8.6 mg/dl (8.5-10.1); CREATININE 1.5 mg/dl (0.60-1.20); POTASSIUM 4.1 mmol/L (3.5-5.1)
[2016-11-18 00:54] LABS: URINE APPEARANCE CLOUDY (CLEAR); URINE BILIRUBIN NEG (NEG); URINE COLOR DK YELLOW; URINE EPITHELIAL CELL AUTO >30 /lpf (0-5); URINE NITRITE NEG (NEG); URINE SPECIFIC GRAVITY 1.023 (1.000-1.030); UROBILINOGEN NEG (NEG); ZZUR CULT IF INDIC CLEAN CATCH YES
[2016-11-18 00:57] LABS: MANUAL MICROSCOPIC REQUIRED? NO; REVIEW REQ? YES
[2016-11-18] MEDS ORDERED: SODIUM CHLORIDE 0.9% 1000ML 1,000 ML IV STA (01:26)
--- NOTE | 2016-11-18 01:31 | EMERGENCY ROOM VISIT NOTE ---
History First contact with patient: 22:32 Chief Complaint: GI ASSESSMENT Stated Complaint: ABD PAIN,DIARRHEA,NAUSEA,VOMITING Nursing Triage Summary: pt reports abd pain that began wednesday "after dinner, around 6pm." pt states abd pain has continued, mid abdomen radiating "way down." c/o diarrhea, states "I' ve had 5 Bowel movements today." denies urinary symptoms, denies n/v states "I threw up yesterday around 4am." pt reports she called "dr. harding's office." and was told to come in if the symptoms became worse. pt alert and oriented x4. breathing regularly and independently. History of Present Illness The patient is a 61 year old female who presents to the Emergency Room with complaints of abdominal pain, diarrhea and vomiting. The patient states that yesterday morning, she had one episode of diarrhea which was watery. She reports that she then developed abdominal pain and did have 1 episode of vomiting. The vomiting has improved. Today, she states she has diarrhea and nausea. She states that she called her currency exchange specialist and they wanted to schedule a CT scan but were having insurance issues. She states the pain is located around her bellybutton. She states the pain radiates throughout the abdomen. She has taken Zofran today for her nausea but nothing for pain. She rates the discomfort a 7/10. She denies any fevers/chills, blood in the stools or urinary symptoms. Review of Systems A complete 10 point review of systems was reviewed with the patient with pertinent positives and negatives as per history of present illness. All else were negative. Past Medical/Surgical History Surgical Problems: (1) History of appendectomy (2) History of cholecystectomy Family History Cancer Diabetes mellitus Heart disease Hypertension Kidney stones Social History Smoking Status: Former Smoker Alcohol Use: occasionally Marital Status: single Housing Status: lives alone Occupation Status: employed Current/Historical Medications Scheduled Omeprazole (Prilosec), 20 MG PO DAILY Ondansetron (Ondansetron HCl), 4 MG PO PRN UD Scheduled PRN Clonazepam (Klonopin), 0.5 MG PO QID PRN for Anxiety Diclofenac (Voltaren), 75 MG PO BID PRN for Pain Allergies Coded Allergies: Fluoxetine (Verified Allergy, Intermediate, swelling and rash, 07/30/16) Metronidazole (Verified Allergy, Unknown, swelling/hives, 07/30/16) Physical Exam Vital Signs Date Time Temp Pulse Resp B/P (MAP) Pulse Ox O2 Delivery O2 Flow Rate FiO2 11/18/16 03:03 11/18/16 02:17 60 18 137/78 98 Room Air 11/18/16 00:29 60 18 125/80 98 Room Air 11/17/16 22:25 36.4 79 19 136/88 93 Room Air Physical Exam VITALS: Vitals are noted on the nurse's note and reviewed by myself. Vital signs stable. GENERAL: This is a 61-year-old male, in no acute distress, nondiaphoretic, well- developed well-nourished. HEENT: Normocephalic. PERRLA. EOMI. Nares patent. Mucous membranes moist. Neck is supple without nuchal rigidity. HEART: Regular rate and rhythm without murmurs gallops or rubs. LUNGS: Clear to auscultation bilaterally without wheezes, rales or rhonchi. ABDOMEN: Positive bowel sounds x 4. Soft, mild periumbilical tenderness to palpation. No guarding or rebound tenderness. NEURO: Patient was alert and oriented to person place and time. Medical Decision & Procedures ER Provider Diagnostic Interpretation: CT ABDOMEN & PELVIS: Small bowel wall thickening in the mid lower right abdomen with associated mesenteric stranding/edema, compatible with enteritis. No evidence of bowel obstruction. Trace free fluid. No fluid collections or free air. Minimal bladder wall thickening or under distention. Punctate hyperdensity at the left UVJ, possible artifact or tiny stone. No significant hydronephrosis. Small nonobstructing right renal calculus or vascular calcification. Right greater than left basilar densities, likely atelectasis. Additional incidental findings. Radiologist: Gloria Lugo MD Laboratory Results 11/17/16 23:04 Red Blood Count 4.63, Mean Corpuscular Volume 90.3, Mean Corpuscular Hemoglobin 29.6, Mean Corpuscular Hemoglobin Concent 32.8, Mean Platelet Volume 11.6, Neutrophils (%) (Auto) 57.7, Lymphocytes (%) (Auto) 30.9, Monocytes (%) (Auto) 6.4, Eosinophils (%) (Auto) 4.1, Basophils (%) (Auto) 0.6, Neutrophils # (Auto) 3.76, Lymphocytes # (Auto) 2.02, Monocytes # (Auto) 0.42, Eosinophils # (Auto) 0.27, Basophils # (Auto) 0.04 11/17/16 23:04 Test 11/17/16 23:04 11/18/16 00:30 White Blood Count 6.53 K/uL (4.8-10.8) Red Blood Count 4.63 M/uL (4.2-5.4) Hemoglobin 13.7 g/dL (12.0-16.0) Hematocrit 41.8 % (37-47) Mean Corpuscular Volume 90.3 fL (80-100) Mean Corpuscular Hemoglobin 29.6 pg (25-34) Mean Corpuscular Hemoglobin Concent 32.8 g/dl (32-36) Platelet Count 186 K/uL (130-400) Mean Platelet Volume 11.6 fL (7.4-10.4) Neutrophils (%) (Auto) 57.7 % Lymphocytes (%) (Auto) 30.9 % Monocytes (%) (Auto) 6.4 % Eosinophils (%) (Auto) 4.1 % Basophils (%) (Auto) 0.6 % Neutrophils # (Auto) 3.76 K/uL (1.4-6.5) Lymphocytes # (Auto) 2.02 K/uL (1.2-3.4) Monocytes # (Auto) 0.42 K/uL (0.11-0.59) Eosinophils # (Auto) 0.27 K/uL (0-0.5) Basophils # (Auto) 0.04 K/uL (0-0.2) RDW Standard Deviation 45.1 fL (36.4-46.3) RDW Coefficient of Variation 13.6 % (11.5-14.5) Immature Granulocyte % (Auto) 0.3 % Immature Granulocyte # (Auto) 0.02 K/uL (0.00-0.02) Anion Gap 12.0 mmol/L (3-11) Est Creatinine Clear Calc Drug Dose 44.0 ml/min Estimated GFR () 43.1 Estimated GFR (Non- 37.2 BUN/Creatinine Ratio 14.8 (10-20) Calcium Level 8.6 mg/dl (8.5-10.1) Total Bilirubin 0.3 mg/dl (0.2-1) Aspartate Amino Transf (AST/SGOT) 23 U/L (15-37) Alanine Aminotransferase (ALT/SGPT) 25 U/L (12-78) Alkaline Phosphatase 103 U/L (45-117) Total Protein 7.9 gm/dl (6.4-8.2) Albumin 3.8 gm/dl (3.4-5.0) Globulin 4.1 gm/dl (2.5-4.0) Albumin/Globulin Ratio 0.9 (0.9-2) Lipase 193 U/L (73-393) Chemistry Specimen Hemolysis Urine Color DK YELLOW Urine Appearance CLOUDY (CLEAR) Urine pH 5.0 (4.5-7.5) Urine Specific [place] 1.023 (1.000-1.030) Urine Protein 1+ (NEG) Urine Glucose (UA) NEG (NEG) Urine Ketones TRACE (NEG) Urine Occult Blood NEG (NEG) Urine Nitrite NEG (NEG) Urine Bilirubin NEG (NEG) Urine Urobilinogen NEG (NEG) Urine Leukocyte Esterase SMALL (NEG) Urine WBC (Auto) 10-30 /hpf (0-5) Urine RBC (Auto) 0-4 /hpf (0-4) Urine Hyaline Casts (Auto) >30 /lpf (0-5) Urine Epithelial Cells (Auto) >30 /lpf (0-5) Urine Bacteria (Auto) NEG (NEG) Urine Pathogenic Casts /lpf (0) Medications Administered Medications (Trade) Dose Ordered Sig/Vikas Route Start Time Stop Time Status Last Admin Dose Admin Sodium Chloride 1,000 ml @ 999 mls/hr Q1H1M STAT IV 11/17/16 22:49 11/17/16 23:49 DC 11/17/16 23:18 999 MLS/HR Ondansetron HCl (Zofran Inj) 4 mg NOW STAT IV 11/17/16 22:49 11/17/16 22:50 DC 11/17/16 23:18 4 MG Sodium Chloride 1,000 ml @ 999 mls/hr Q1H1M STAT IV 11/18/16 01:26 11/18/16 02:26 DC 11/18/16 01:31 999 MLS/HR ED Course The patient was evaluated as above. Labs were drawn and IV access was obtained. Patient was medicated with 1 L normal saline solution and 4 mg morphine. Patient was reevaluated and findings were discussed. She will be hydrated with an additional 1 L of normal saline prior to discharge. Discharge instructions were reviewed with the patient. The patient verbalized understanding of my assessment and treatment plan and was discharged home in good condition. Medical Decision Differential diagnosis includes gastroenteritis, colitis, mesenteric ischemia, appendicitis, kidney stone, UTI, ovarian cyst, ovarian torsion, among others. The patient is a 61-year-old female who presents today complaining of abdominal pain. Labs revealed no leukocytosis or anemia. Creatinine is mildly elevated consistent with dehydration. CT scan of the abdomen and pelvis showed findings consistent with enteritis. The patient does not appear significantly uncomfortable on examination she can be discharged to follow-up with gastroenterology tomorrow. She was hydrated with 2 L normal saline solution. She was given IV Zofran and did not require any IV analgesics in the emergency department. CT did show a questionable kidney stones but I feel this is not likely with no blood on the urinalysis. Patient was instructed to return here she is worsening pain or any other new/concerning symptoms. The patient's case was reviewed with Dr. Schultz, ED attending physician, who agreed with my assessment and treatment plan. Based on the patient's presentation and work up, I feel the patient is stable for outpatient treatment. The patient was educated to return to the emergency department for any worsening of their current condition or new/concerning symptoms. She will follow up with her PCP. Medication reconciliation: I attest that I have personally reviewed the patient 's current medication list. Blood pressure screening: Patient was found to have an elevated blood pressure and was referred to their primary care provider for recheck and further treatment. Impression Primary Impression: Enteritis Departure Information Dispostion Home / Self-Care Condition GOOD Referrals No Doctor, Assigned (PCP) Lemuel Edouard M.D. Patient Instructions My [facility] Additional Instructions For pain control, you can use the following [id number] medicines (if >12 yo): - Regular strength (325mg/tab) Tylenol (acetaminophen) 2 tabs every 4-6 hours as needed. Do not exceed 12 tablets in a 24 hour period. Avoid taking more than 4 grams (4000 mg) of Tylenol per day. This includes any other sources of acetaminophen you may take on a regular basis. Rest and drink plenty of fluids. You were found to have dehydration today and a mild elevation of your creatinine, which shows kidney function. You should have this rechecked. Call your currency exchange specialist tomorrow to schedule follow-up appointment.
[2016-11-18 02:17] VITALS: BP 137/78; PULSE 60; O2SAT 98
--- NOTE | 2016-11-18 07:51 | DIAGNOSTIC IMAGING REPORT ---
CT SCAN OF THE ABDOMEN AND PELVIS WITHOUT IV CONTRAST CLINICAL HISTORY: Generalized abdominal pain. COMPARISON STUDY: Abdominal CT dated 07/30/2016. TECHNIQUE: CT scan of the abdomen and pelvis is performed from the lung bases to the proximal femora. Images are reviewed in the axial, sagittal, and coronal planes. IV contrast was not administered for this examination as per the referring clinician due to elevated serum creatinine. Note that the examination is suboptimal without oral and IV contrast. Automated dose control exposure was utilized. CT DOSE: 835.38 mGy.cm FINDINGS: Lung bases: The heart is normal in size and without pericardial effusion. There are scattered coronary artery calcifications. The lung bases are clear noting dependent atelectasis. Liver: The unenhanced liver is normal in size, contour, and attenuation. There is no intrahepatic biliary ductal dilatation. A 9 mm cyst is noted in the left lobe. Gallbladder: Unremarkable. Spleen: Normal in size and attenuation. Pancreas: The unenhanced pancreas is moderately atrophic and grossly unremarkable. Adrenal glands: Unremarkable. Kidneys: The unenhanced kidneys are atrophic and without hydronephrosis. There are no renal calculi identified. Small renovascular calcifications are incidentally noted. There is no evidence of contour deforming renal mass lesion. Abdominal vasculature: The abdominal aorta is normal in course and caliber noting advanced atherosclerotic calcification. A stent is noted in the right common iliac artery. Bowel: No bowel obstruction is seen. There is a loop of small bowel in the right lower quadrant extending into the pelvis (axial images #325, #343, #368) which appears thick walled and demonstrates surrounding inflammation with trace fluid. The appearance is consistent with a nonspecific enteritis.. The appendix is not identified and reported surgically absent. Peritoneum: There is no intraperitoneal free air. Trace free fluid is seen in the pelvis. There is a fat-containing umbilical hernia. Lymphadenopathy: None. Pelvic viscera: The bladder is decompressed and grossly unremarkable. The uterus is surgically absent. No adnexal lesion is seen. Skeletal structures: The skeletal structures are osteopenic. There is mild lumbosacral spondylosis. Degenerative change is also seen in the sacroiliac joints. No lytic or blastic lesions are seen. IMPRESSION: 1. There is a long segment of mildly thick-walled distal small bowel in the lower abdomen and pelvis with associated surrounding inflammation and trace fluid. The appearance is consistent with a nonspecific enteritis. This could be on an infectious, inflammatory, or ischemic basis. 2. Trace free fluid is seen in the pelvis. No intraperitoneal free air is seen. 3. No bowel obstruction. 4. Additional findings as above. Electronically signed by: Aman Murray M.D. 11/18/2016 7:50 AM Dictated Date/Time: 11/18/2016 7:41 AM
== END 2016-11-18 03:03 | disposition home or self-care (01) ==
LOC: C.EDB 22:21 → C.EDA 11-18 03:03
DX: K52.9 Noninfective gastroenteritis and colitis, unspecified (principal); Z90.49 Acquired absence of other specified parts of digestive tract; Z87.891 Personal history of nicotine dependence; Z79.899 Other long term (current) drug therapy; Z88.8 Allergy status to other drugs, medicaments and biological substances; Z80.9 Family history of malignant neoplasm, unspecified; Z83.3 Family history of diabetes mellitus; Z82.49 Family history of ischemic heart disease and other diseases of the circulatory system; Z84.1 Family history of disorders of kidney and ureter

== ENCOUNTER → 2016-11-19 | Outpatient (CLI) | payer OTHER ==
[~2016-11-19] MED LIST changes: +CLON0.5T3 PO; -KLN5X PO; +OMEP20CA9 PO; +ONDA4TAB9 PO
[2016-11-24 18:31] LABS: S.CEREVISIAE AB IGA 18.1 U (<=20.0); S.CEREVISIAE AB IGG 11.3 U (<=20.0)
== END | disposition home or self-care (01) ==
LOC: C.LABPBG 11:55
PROVIDERS: ATTEND Internal Medicine Gastroenterology
DX: R10.9 Unspecified abdominal pain (principal); K21.9 Gastro-esophageal reflux disease without esophagitis; R11.0 Nausea

== ENCOUNTER → 2017-01-05 | Outpatient (CLI) | payer OTHER ==
[2017-01-05 18:22] LABS: ALT/SGPT 49 U/L (12-78); AST/SGOT 22 U/L (15-37); BLOOD UREA NITROGEN 12 mg/dl (7-18); BUN/CREATININE RATIO 13.9 (10-20); CALCIUM 9.3 mg/dl (8.5-10.1); CARBON DIOXIDE 27 mmol/L (21-32); CHLORIDE 110 mmol/L (98-107); CHOLESTEROL 260 mg/dl (0-200); CREATININE 0.88 mg/dl (0.60-1.20); GLUCOSE 97 mg/dl (70-99); POTASSIUM 3.8 mmol/L (3.5-5.1); SODIUM 143 mmol/L (136-145); TRIGLYCERIDES 138 mg/dl (0-150); VERY LOW DENSITY LIPOPROT CALC 28 mg/dl
[2017-01-05 18:32] LABS: ALB/GLOB RATIO 0.8 (0.9-2); ALKALINE PHOSPHATASE 121 U/L (45-117); CHOLESTEROL/HDL RATIO 6.8; HDL CHOLESTEROL 38 mg/dl; LDL CHOLESTEROL CALCULATED 194 mg/dl; THYROID STIMULATING HORMONE 0.932 uIu/ml (0.300-4.500)
== END | disposition home or self-care (01) ==
LOC: C.LABPBG 11:59
PROVIDERS: ATTEND Neuromusculoskeletal Medicine & OMM
DX: Z00.00 Encounter for general adult medical examination without abnormal findings (principal)

== ENCOUNTER → 2017-04-08 | Outpatient (CLI) | payer OTHER | END | disposition home or self-care (01) | LOC: C.LABSPEC 17:42 | PROVIDERS: ATTEND Physician Assistant | DX: N89.8 Other specified noninflammatory disorders of vagina (principal) ==

== ENCOUNTER 2017-07-16 14:49 | Emergency (ER) | payer OTHER ==
[~2017-07-16] VITALS: Ht 165.1 cm; Wt 89.0 kg
[2017-07-16 14:54] VITALS: TEMP 36.6; Ht 165.1 cm; Wt 89.0 kg
--- NOTE | 2017-07-16 18:02 | EMERGENCY ROOM VISIT NOTE ---
History Report prepared by Palak: Jose Maria Mcneal Under the Supervision of: Dr. Leigh Bryant D.O. First contact with patient: 17:33 Chief Complaint: RECTAL BLEEDING Stated Complaint: RECTAL BLEEDING Nursing Triage Summary: pt here with dark red blood in toilet since this am. some lower abd pains. no hx of this previously History of Present Illness The patient is a 62 year old female who presents to the Emergency Room with complaints of intermittent rectal bleeding this morning while having a bowel movement. The patient states that at 1007 this morning she had a bowel movement causing the bright red blood. She additionally states that she has off and on abdominal pain, though this has been going on for a long time. The patient notes that yesterday her bowel movements were fine. She states that she has never had rectal bleeding in the past, though she states that she has had this abdominal pain for a long time. She states that she was on steroids for the pain , though she is no longer taking them. The patient additionally notes that she has a history of a small bowel obstruction, an infection of the large intestine , hemorrhoids, and GERD. The patient is additionally complaining of leg swelling , fever, chills, and sweating, and she is light headed. She denies any dizziness. She does not take any aspirin, and she has not had any dietary changes recently. The patient states that she currently has gingivitis. She denies any alcohol use or smoking. Patient states last colonoscopy was several years ago and that she is due for another one in the next year to. Patient states last colonoscopy do not note any acute abnormalities. Source of History: patient Onset: this morning Position: other (rectum) Quality: other (bleeding) Timing: intermittent Associated Symptoms: + fevers, + chills, + abdominal pain Note: Associated symptoms: leg swelling, sweating, and light headed Review of Systems See HPI for pertinent positives & negatives. A total of 10 systems reviewed and were otherwise negative. Past Medical & Surgical Surgical Problems: (1) History of appendectomy (2) History of cholecystectomy Family History Cancer Diabetes mellitus Heart disease Hypertension Kidney stones Social History Smoking Status: Former Smoker Alcohol Use: occasionally Marital Status: single Housing Status: lives alone Occupation Status: employed Current/Historical Medications Scheduled Omeprazole (Prilosec), 20 MG PO DAILY Scheduled PRN Hydroxyzine Hcl (Atarax), 10 MG PO DAILY PRN for Anxiety Ondansetron (Ondansetron HCl), 4 MG PO Q6H PRN for Nausea Allergies Coded Allergies: Fluoxetine (Verified Allergy, Intermediate, swelling and rash, 07/16/17) Atenolol (Unverified Allergy, Unknown, , 07/16/17) Ciprofloxacin (Unverified Allergy, Unknown, , 07/16/17) Fish Oil (Unverified Allergy, Unknown, , 07/16/17) Metronidazole (Verified Allergy, Unknown, swelling/hives, 07/16/17) Physical Exam Vital Signs Date Time Temp Pulse Resp B/P (MAP) Pulse Ox O2 Delivery O2 Flow Rate FiO2 07/16/17 21:41 88 20 188/89 97 07/16/17 21:24 76 20 187/99 Room Air 07/16/17 21:00 84 20 178/122 Room Air 07/16/17 20:59 74 20 195/114 98 Room Air 07/16/17 20:58 84 195/114 Room Air 07/16/17 18:05 79 07/16/17 14:54 36.6 96 16 189/103 96 Room Air Physical Exam GENERAL: alert, well appearing, well nourished, no distress, non-toxic EYE EXAM: normal conjunctiva, PERRL and EOM's grossly intact OROPHARYNX: no exudate, no erythema, lips, buccal mucosa, and tongue normal and mucous membranes are moist NECK: supple, no nuchal rigidity, no adenopathy, non-tender LUNGS: Clear to auscultation. Normal chest wall mechanics HEART: no murmurs, S1 normal and S2 normal ABDOMEN: abdomen soft, non-tender, normo-active bowel sounds, no masses, no rebound or guarding. BACK: Back is symmetrical on inspection and there is no deformity, no midline tenderness, no CVA tenderness. RECTAL: The patient had several hemorrhoids. No active bleeding. Not thrombosed. No evidence of anal fissure. No stool in the vault on rectal exam, though the mucous was still positive on guaiac testing. SKIN: no rashes and no bruising UPPER EXTREMITIES: upper extremities are grossly normal. LOWER EXTREMITIES: No pitting edema. NEURO EXAM: Normal sensorium, cranial nerves II-XII grossly intact, normal speech, no gross weakness of arms, no gross weakness of legs. Medical Decision & Procedures ER Provider Diagnostic Interpretation: CT ANGIOGRAPHY OF THE ABDOMEN AND PELVIS CLINICAL HISTORY: Lower abdominal pain. Rectal bleeding. COMPARISON STUDY: CT of the abdomen and pelvis November 18, 2016. TECHNIQUE: Helical axial images of the abdomen and pelvis were obtained during arterial phase following intravenous injection of 115 cc Optiray 320 IV. Sagittal and coronal reconstructions were viewed as well as maximal intensity projections on an independent 3-D workstation. FINDINGS: Several hepatic cysts are noted. The spleen, adrenal glands and pancreas are unremarkable. There is scarring within the right kidney. There is no evidence for a bowel obstruction. Caliber and wall thickness of small and large bowel are normal. No pneumatosis, free air or portal venous gas is present. There is no ascites. There is no lymphadenopathy. There is extensive atherosclerotic plaque of the abdominal aorta. There is no aneurysmal dilatation. 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 There is no high-grade stenosis of the celiac axis or superior mesenteric artery. The bilateral renal arteries are patent. The inferior mesenteric artery is patent. A right common iliac artery stent is patent. There is moderate stenosis of the proximal left common iliac artery. IMPRESSION: 1. No acute process within the abdomen or pelvis. 2. 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 No high-grade stenosis of the celiac axis or superior mesenteric artery. 3. Patent right common iliac artery stent. Moderate stenosis of the proximal left common iliac artery. Electronically signed by: Christ Justice M.D. 07/16/2017 8:45 PM Laboratory Results 07/16/17 18:03 Red Blood Count 4.05, Mean Corpuscular Volume 88.4, Mean Corpuscular Hemoglobin 29.9, Mean Corpuscular Hemoglobin Concent 33.8, Mean Platelet Volume 11.5, Neutrophils (%) (Auto) 61.4, Lymphocytes (%) (Auto) 30.1, Monocytes (%) (Auto) 5.4, Eosinophils (%) (Auto) 2.4, Basophils (%) (Auto) 0.4, Neutrophils # (Auto) 4.12, Lymphocytes # (Auto) 2.02, Monocytes # (Auto) 0.36, Eosinophils # (Auto) 0.16, Basophils # (Auto) 0.03 07/16/17 18:03 Test 07/16/17 18:03 White Blood Count 6.71 K/uL (4.8-10.8) Red Blood Count 4.05 M/uL (4.2-5.4) Hemoglobin 12.1 g/dL (12.0-16.0) Hematocrit 35.8 % (37-47) Mean Corpuscular Volume 88.4 fL (80-100) Mean Corpuscular Hemoglobin 29.9 pg (25-34) Mean Corpuscular Hemoglobin Concent 33.8 g/dl (32-36) Platelet Count 186 K/uL (130-400) Mean Platelet Volume 11.5 fL (7.4-10.4) Neutrophils (%) (Auto) 61.4 % Lymphocytes (%) (Auto) 30.1 % Monocytes (%) (Auto) 5.4 % Eosinophils (%) (Auto) 2.4 % Basophils (%) (Auto) 0.4 % Neutrophils # (Auto) 4.12 K/uL (1.4-6.5) Lymphocytes # (Auto) 2.02 K/uL (1.2-3.4) Monocytes # (Auto) 0.36 K/uL (0.11-0.59) Eosinophils # (Auto) 0.16 K/uL (0-0.5) Basophils # (Auto) 0.03 K/uL (0-0.2) RDW Standard Deviation 44.4 fL (36.4-46.3) RDW Coefficient of Variation 13.6 % (11.5-14.5) Immature Granulocyte % (Auto) 0.3 % Immature Granulocyte # (Auto) 0.02 K/uL (0.00-0.02) Prothrombin Time 10.5 SECONDS (9.0-12.0) Prothromb Time International Ratio 1.0 (0.9-1.1) Anion Gap 9.0 mmol/L (3-11) Est Creatinine Clear Calc Drug Dose 80.3 ml/min Estimated GFR () 91.6 Estimated GFR (Non- 79.0 BUN/Creatinine Ratio 16.2 (10-20) Calcium Level 8.9 mg/dl (8.5-10.1) Total Bilirubin 0.3 mg/dl (0.2-1) Aspartate Amino Transf (AST/SGOT) 26 U/L (15-37) Alanine Aminotransferase (ALT/SGPT) 34 U/L (12-78) Alkaline Phosphatase 121 U/L (45-117) Troponin I < 0.015 ng/ml (0-0.045) Total Protein 7.6 gm/dl (6.4-8.2) Albumin 3.4 gm/dl (3.4-5.0) Globulin 4.2 gm/dl (2.5-4.0) Albumin/Globulin Ratio 0.8 (0.9-2) Thyroid Stimulating Hormone (TSH) 1.700 uIu/ml (0.300-4.500) Laboratory results per my review. ECG Per My Interpretation Indication: abdominal pain Rate (beats per minute): 68 Rhythm: sinus rhythm Findings: T-wave inversion (Lead 3 and AVF), other (Normal interval. Normal axis.) Comparison ECG Date: 07/30/16 Change: TWI in lead 3 was still present. ED Course 1732: The patient was evaluated in room A11. A complete history and physical exam was performed. 1905: I reevaluated the patient, and she has had no recurrent episodes, and she is still having intermittent abdominal pain. Medical Decision Differential diagnosis: Etiologies such as diverticulosis, AVM, coagulopathy, colitis, inflammatory bowel disease, malignancy, Aliya-Pisano tear, esophagitis, peptic ulcer disease , variceal bleed, gastritis, epistaxis, fissure, hemorrhoids, as well as others were entertained. Patient well-appearing here, no recurrent episodes of GI bleed, no abdominal pain, no nausea or vomiting. Patient's vital signs stable throughout, and patient had no orthostatic symptoms. Patient's labs otherwise reassuring, CT otherwise unremarkable. Discussed with her close follow-up with family doctor as well as GI and possible need for urgent colonoscopy given symptoms. Discussed with patient symptoms to watch and return for, she and family at bedside verbalized understanding were agreeable with plan. Doubt mesenteric ischemia, ischemic colitis, perforation, peptic ulcer disease. I feel given bright red blood noted on the picture patient showed me on her phone of the contents of her toilet bowl at home appears more likely lower GI bleed and thusly more likely related to hemorrhoidal bleeding, diverticular bleed, or AVM. All of this seems to have resolved at this time given the patient has not had a recurrence while here. Medication Reconcilliation Current Medication List: was personally reviewed by me Blood Pressure Screening Patient's blood pressure: Elevated blood pressure Impression Primary Impression: GI bleed Additional Impressions: Abdominal pain Hypertension Scribe Attestation The scribe's documentation has been prepared under my direction and personally reviewed by me in its entirety. I confirm that the note above accurately reflects all work, treatment, procedures, and medical decision making performed by me. Departure Information Dispostion Home / Self-Care Referrals No Doctor, Assigned (PCP) Patient Instructions My [facility] Additional Instructions Please follow up with your GI doctor. Please stick to a light and bland diet and drink plenty of water. If you have any recurrent episodes of blood with the bowel movement, develop abdominal pain, nausea or vomiting, fevers or chills , dizziness or lightheadedness, you've any other new concerns, please return the emergency room. Please also discussed with your doctor your high blood pressure and have it rechecked. Problem Qualifiers Primary Impression: GI bleed GI bleed type/associated pathology: unspecified gastrointestinal hemorrhage type Qualified Codes: K92.2 - Gastrointestinal hemorrhage, unspecified Additional Impressions: Abdominal pain Abdominal location: lower abdomen, unspecified Qualified Codes: R10.30 - Lower abdominal pain, unspecified Hypertension Hypertension type: unspecified Qualified Codes: I10 - Essential (primary) hypertension
[2017-07-16] MEDS ORDERED: HYDR-389 PO (18:18)
[2017-07-16] MEDS ORDERED: HYDR1SYP PO (18:18)
[2017-07-16 18:28] LABS: BASO % 0.4 %; BASO ABS # 0.03 K/uL (0-0.2); EOS % 2.4 %; EOS ABS # 0.16 K/uL (0-0.5); HEMATOCRIT 35.8 % (37-47); HEMOGLOBIN 12.1 g/dL (12.0-16.0); IG# 0.02 K/uL (0.00-0.02); LYMPH % 30.1 %; LYMPH ABS # 2.02 K/uL (1.2-3.4); MEAN CELL VOLUME 88.4 fL (80-100); MEAN CORPUSCULAR HEMOGLOBIN 29.9 pg (25-34); MEAN CORPUSCULAR HGB CONC 33.8 g/dl (32-36); MEAN PLATELET VOLUME 11.5 fL (7.4-10.4); MONO % 5.4 %; MONO ABS # 0.36 K/uL (0.11-0.59); NEUT % 61.4 %; NEUT ABS # 4.12 K/uL (1.4-6.5); PLATELET COUNT 186 K/uL (130-400); RED CELL DISTRIBUTION WIDTH CV 13.6 % (11.5-14.5); RED CELL DISTRIBUTION WIDTH SD 44.4 fL (36.4-46.3); WHITE BLOOD COUNT 6.71 K/uL (4.8-10.8)
[2017-07-16 18:46] LABS: ALBUMIN 3.4 gm/dl (3.4-5.0); ALT/SGPT 34 U/L (12-78); BLOOD UREA NITROGEN 13 mg/dl (7-18); CALCIUM 8.9 mg/dl (8.5-10.1); CARBON DIOXIDE 24 mmol/L (21-32); GLUCOSE 87 mg/dl (70-99); POTASSIUM 3.6 mmol/L (3.5-5.1); SODIUM 141 mmol/L (136-145)
[2017-07-16 18:57] LABS: ALKALINE PHOSPHATASE 121 U/L (45-117); AST/SGOT 26 U/L (15-37); TOTAL PROTEIN 7.6 gm/dl (6.4-8.2)
[2017-07-16] MEDS ORDERED: OPTIRAY 320 IV PRN (19:45)
--- NOTE | 2017-07-16 20:46 | DIAGNOSTIC IMAGING REPORT ---
CT ANGIOGRAPHY OF THE ABDOMEN AND PELVIS CLINICAL HISTORY: Lower abdominal pain. Rectal bleeding. COMPARISON STUDY: CT of the abdomen and pelvis November 18, 2016. TECHNIQUE: Helical axial images of the abdomen and pelvis were obtained during arterial phase following intravenous injection of 115 cc Optiray 320 IV. Sagittal and coronal reconstructions were viewed as well as maximal intensity projections on an independent 3-D workstation. FINDINGS: Several hepatic cysts are noted. The spleen, adrenal glands and pancreas are unremarkable. There is scarring within the right kidney. There is no evidence for a bowel obstruction. Caliber and wall thickness of small and large bowel are normal. No pneumatosis, free air or portal venous gas is present. There is no ascites. There is no lymphadenopathy. There is extensive atherosclerotic plaque of the abdominal aorta. There is no aneurysmal dilatation. 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 There is no high-grade stenosis of the celiac axis or superior mesenteric artery. The bilateral renal arteries are patent. The inferior mesenteric artery is patent. A right common iliac artery stent is patent. There is moderate stenosis of the proximal left common iliac artery. IMPRESSION: 1. No acute process within the abdomen or pelvis. 2. 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 No high-grade stenosis of the celiac axis or superior mesenteric artery. 3. Patent right common iliac artery stent. Moderate stenosis of the proximal left common iliac artery. Electronically signed by: Christ Justice M.D. 07/16/2017 8:45 PM Dictated Date/Time: 07/16/2017 8:35 PM
[2017-07-16 21:41] VITALS: BP 188/89; PULSE 88; O2SAT 97
== END 2017-07-16 21:43 | disposition home or self-care (01) ==
LOC: C.EDB 14:50 → C.EDA 21:43
DX: K92.2 Gastrointestinal hemorrhage, unspecified (principal); R10.30 Lower abdominal pain, unspecified; I10 Essential (primary) hypertension; R42 Dizziness and giddiness; Z87.891 Personal history of nicotine dependence; Z90.89 Acquired absence of other organs; Z98.890 Other specified postprocedural states; Z83.3 Family history of diabetes mellitus; Z82.49 Family history of ischemic heart disease and other diseases of the circulatory system; Z84.1 Family history of disorders of kidney and ureter

== ENCOUNTER → 2017-07-19 | Outpatient (CLI) | payer OTHER ==
[~2017-07-19] MED LIST changes: -CLON0.5T3 PO; -DICL-201 PO; +HYDR-389 PO
== END | disposition home or self-care (01) ==
LOC: C.LABPBG 12:48
PROVIDERS: ATTEND Family Medicine
DX: E78.5 Hyperlipidemia, unspecified (principal)

== ENCOUNTER 2021-03-26 17:07 | Observation (INO) ==
--- NOTE | 2021-03-26 19:29 | Emergency Department Note ---
Impression & Plan Syncope, Contusion of face, High serum chloride ED Provider Note NAME: ELIDA COLEMAN AGE: 66 SEX: F : 1955 ARRIVES VIA: Walk-In INFORMANT: Patient ED PROVIDER(S): Kevin Perales DO CHIEF COMPLAINT: syncope HPI: Patient is a 66-year-old female who presents to the ER with a past medical history of hypertension, carotid stenosis, IBS, GERD, depression and hyperlipidemia for syncopal episode x2. She woke up and was getting out of bed this morning and passed out. After this she woke back up and was try to get out of bed and passed out again and fell in between the nightstand. She is complaining of a headache. No neck pain chest pain belly pain or any other extremity. No chest pain or shortness of breath. No nausea vomiting or diarrhea. She did have to urinate when she woke up and was going to the bathroom but this was nothing out of the ordinary. ROS: See above HPI for pertinent positives & negatives. A total of 10 systems reviewed and were otherwise negative. PAST MEDICAL HISTORY:See Below PAST SURGICAL HISTORY:See Below FAMILY HISTORY:See Below SOCIAL HISTORY:See Below HOME MEDICATIONS:See Below ALLERGIES:See Below VITALS:See Below PHYSICAL EXAMINATION: GENERAL: Sitting up in bed, alert, well appearing, well nourished, no distress, non-toxic EYE EXAM: normal conjunctiva. PERRL and EOM's intact. OROPHARYNX: no exudate, no erythema, lips, buccal mucosa, and tongue normal and mucous membranes are moist NECK: supple, no nuchal rigidity, no adenopathy, non-tender LUNGS: Clear to auscultation. Normal chest wall mechanics HEART: no murmurs, S1 normal and S2 normal ABDOMEN: abdomen soft, non-tender, normo-active bowel sounds, no masses, no rebound or guarding. BACK: Back is symmetrical on inspection and there is no deformity, no midline tenderness, no CVA tenderness. SKIN: no rashes and no bruising UPPER EXTREMITIES: upper extremities are grossly normal. LOWER EXTREMITIES: No pitting edema. NEURO EXAM: Normal sensorium, cranial nerves II-XII intact, normal speech, no weakness of arms, no weakness of legs. No drift. Finger to nose intact. Gross sensation intact. MEDICAL DECISION MAKING: Patient is a 66-year-old female who presents the ER for syncopal episode x2 today. IV was established blood work is obtained. Labs show no significant leukocytosis or anemia. BMP with a slightly elevated chloride. LFTs bilirubin was unremarkable. Troponin was detectable at 0.032. Lipase was normal. UA was contaminated with multiple epithelial cells. CT head was clean. CT of the face showed age-indeterminate orbital wall fracture. Chest x-ray and CT of the cervical spine were unremarkable. Patient was updated at bedside. With the detectable troponin and syncope x2 she was discussed with the hospitalist for observation. Patient will need to follow-up with oral maxillofacial in regards to the possible acute versus old facial fracture which can be done as an inpatient. Triage Nursing notes reviewed. Limited review of prior medical records performed Vital Signs: reviewed and remarkable for HTN Differential diagnosis: Differential diagnosis includes etiologies such as vasovagal event, infection, hypoglycemia, electrolyte abnormalities, cardiac sources, intracerebral event, toxicologic, neurologic, as well as others were entertained. ER treatment provided: See below Diagnostics interpreted by me: ECG: Sinus rhythm rate of 74 Left axis PVCs QTC 448 PVCs are new from September 2020 Cardiac Monitoring: An order was placed for continuous cardiac monitoring. The monitor shows a rate of 60 with sinus rhythm. Laboratory studies: As stated above and show below. Imaging studies: CT head, face and cervical spine as discussed above Chest x-ray was unremarkable Consultation(s): Discussed with hospitalist for further evaluation Procedures: none Critical Care: None Past Med/Surg History Medical History (Updated 03/26/21 @ 23:33 by Kevin Perales DO) Abdominal aortic atherosclerosis pt unaware Allergic rhinitis Anxiety Arthritis Chronic low back pain Chronic neck pain Depression Dysphagia resolved> dilation with EGD GERD without esophagitis Hemorrhoids Hiatal hernia Hyperlipidemia no meds due to side effects of meds Hypertension Irritable bowel syndrome (IBS) Left carotid stenosis just follows PCP Lower back pain Lumbar spinal stenosis Peripheral vascular disease Post traumatic stress disorder (PTSD) Superior mesenteric artery atherosclerosis pt unaware Surgical History History of appendectomy History of cholecystectomy History of esophagogastroduodenoscopy (EGD) 07/03/2020 [facility] History of tooth extraction Hx of colonoscopy 06/19/2020 [facility] Hx of hysterectomy S/P arterial stent bilat iliac stents, 2014 and 2016 > [facility] S/P hemorrhoidectomy (10/11/20) Hemorrhoidectomy - Vasyl Sheth DO S/P tubal ligation Family History Father Coronary heart disease Myocardial infarction Kidney disease Mother Kidney disease Coronary heart disease Hypertension Cancer Aunt Amputated toe Denies family history of Ovarian cancer Prostate cancer Breast cancer Social History Smoking Status: Current some day smoker Age Started Using Tobacco: 26; Age Quit Using Tobacco: 60; packs per day: 1.5; Second Hand Exposure: No; Hx Alcohol Use: Yes Alcohol type: wine Hx Substance Use: No Preferred Language: Thai Communication Ability: Effective Visual Impairment: No Limitations Hearing Ability: Normal 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 Beliefs That Will Affect Care: None marital status: Single Current Living Situation: Alone current occupational status: retired Feels Safe at Home: Yes Childhood Exposure to Second-Hand Smoke: Yes caffeine: Yes during the past year weight has: increased > 10 lbs Dental Care, Regularly: Yes Physical Activity Frequency: Other Physical Activity Frequency Comment: limited due to physical issues Seatbelt Use: always Sunscreen Use: No Assistive Devices: Glasses Allergies Allergies Allergy/AdvReac Type Severity Reaction Status Date / Time atenolol Allergy Intermediate Gastrointestinal Verified 03/26/21 21:26 Upset ciprofloxacin Allergy Intermediate Gastrointestinal Verified 03/26/21 21:26 Upset fish oil Allergy Intermediate Gastrointestinal Verified 03/26/21 21:26 Upset fluoxetine Allergy Intermediate swelling Verified 03/26/21 21:26 and rash metronidazole Allergy Unknown swelling/hi Verified 03/26/21 21:26 ves Home Meds Home Medications Medication Instructions Recorded Confirmed diphenhydramine HCl 25 mg capsule 25 mg PO HS PRN cap 04/15/20 03/26/21 (Benadryl) hydroxyzine HCl 25 mg tablet 25 mg PO HS 03/26/21 03/26/21 Previous Rx's Medication Instructions Recorded lovastatin 20 mg tablet 20 mg PO DAILY #90 tab 11/29/20 fluticasone propionate 50 2 spray INTRANASAL DAILY #3 ea 12/05/20 mcg/actuation nasal spray,suspension losartan 25 mg tablet 25 mg PO QAM #90 tab 01/17/21 venlafaxine 37.5 mg 75 mg PO DAILY #90 cap 01/17/21 capsule,extended release 24 hr (Effexor XR) omeprazole 20 mg capsule,delayed 20 mg PO QAM #90 cap 03/07/21 release Results & Data (ED) Vital Signs Vital Signs - 24 hr 03/26/21 17:41 03/26/21 19:32 03/26/21 19:35 Temperature 36.8 C Temperature Source Temporal Artery Scan Pulse Rate 80 Pulse Rate [Bilateral Apical] 68 Respiratory Rate 20 20 Respiratory Effort / Characteristics Non-Labored Spontaneous Respiratory Depth Normal Respiratory Pattern Regular Blood Pressure 145/97 H Blood Pressure [Left Arm] 159/103 H Blood Pressure Mean 113 Blood Pressure Mean [Left Arm] 121 Pulse Oximetry 98 98 98 Oxygen Delivery Method Room Air Room Air Room Air Sepsis Recent Fever Within 48 Hours No Sepsis New/Unexplained Change in Mental Status N/A Sepsis Action Taken by Nursing No Action Required 03/26/21 19:43 03/26/21 20:44 03/26/21 20:58 Temperature Temperature Source Pulse Rate Pulse Rate [Bilateral Apical] 95 H 69 71 Respiratory Rate 20 20 20 Respiratory Effort / Characteristics Respiratory Depth Respiratory Pattern Blood Pressure Blood Pressure [Left Arm] 126/99 137/73 149/87 H Blood Pressure Mean Blood Pressure Mean [Left Arm] 108 94 107 Pulse Oximetry 94 97 97 Oxygen Delivery Method Room Air Room Air Sepsis Recent Fever Within 48 Hours Sepsis New/Unexplained Change in Mental Status Sepsis Action Taken by Nursing 03/26/21 22:03 03/26/21 22:32 03/26/21 23:11 Temperature Temperature Source Pulse Rate Pulse Rate [Bilateral Apical] 72 71 80 Respiratory Rate 20 20 20 Respiratory Effort / Characteristics Respiratory Depth Respiratory Pattern Blood Pressure Blood Pressure [Left Arm] 168/116 H 180/71 H 165/93 H Blood Pressure Mean Blood Pressure Mean [Left Arm] 133 107 117 Pulse Oximetry 100 98 98 Oxygen Delivery Method Room Air Room Air Room Air Sepsis Recent Fever Within 48 Hours Sepsis New/Unexplained Change in Mental Status Sepsis Action Taken by Nursing Laboratory Data Result diagrams: 03/26/21 19:30 03/26/21 19:30 Lab Results 03/26/21 03/26/21 03/26/21 Range/Units 19:30 19:30 19:30 WBC 9.11 (4.8-10.8) K/uL RBC 4.38 (4.2-5.4) M/uL Hgb 12.4 (12.0-16.0) g/dL Hct 38.8 (37-47) % MCV 88.6 (80-100) fL MCH 28.3 (25-34) pg MCHC 32.0 (32-36) g/dL RDW Std Deviation 45.3 (36.4-46.3) fL RDW Coeff of [place]ari 14.0 (11.5-14.5) % Plt Count 271 (130-400) K/uL MPV 12.0 H (7.4-10.4) fL Immature Gran % (Auto) 0.3 % Neut % (Auto) 65.0 % Lymph % (Auto) 28.1 % [place] % (Auto) 6.1 % Eos % (Auto) 0.3 % Baso % (Auto) 0.2 % Neut # (Auto) 5.91 (1.4-6.5) K/uL Lymph # (Auto) 2.56 (1.2-3.4) K/uL [place] # (Auto) 0.56 (0.11-0.59) K/uL Eos # (Auto) 0.03 (0-0.5) K/uL Baso # (Auto) 0.02 (0-0.2) K/uL Immature Gran # (Auto) 0.03 H (0.00-0.02) K/uL Sodium 141 (136-145) mmol/L Potassium 3.5 (3.5-5.1) mmol/L Chloride 109 H (98-107) mmol/L Carbon Dioxide 25 (21-32) mmol/L Anion Gap 7.0 (3-11) BUN 10 (7-18) mg/dl Creatinine 0.96 (0.6-1.2) mg/dl Est Cr Clr Drug Dosing 62.1 ml/min Est GFR ( Amer) 71.4 ml/min Est GFR (Non-Af Amer) 61.6 ml/min BUN/Creatinine Ratio 10.5 (10-20) Glucose 97 (70-99) mg/dl Calcium 9.5 (8.5-10.1) mg/dl Total Bilirubin 0.3 (0.2-1) mg/dl AST 18 (15-37) U/L ALT 13 (12-78) U/L Alkaline Phosphatase 158 H (45-117) U/L Troponin I 0.032 (0-0.045) ng/ml Total Protein 8.2 (6.4-8.2) gm/dl Albumin 3.4 (3.4-5.0) gm/dl Globulin 4.8 H (2.5-4.0) gm/dl Albumin/Globulin Ratio 0.7 L (0.9-2) Lipase 129 (73-393) U/L Urine Color Yellow Urine Appearance Clear (Clear) Urine pH 6.0 (4.5-7.5) Ur Specific [place] 1.016 (1.000-1.030) Urine Protein Trace H (Negative) Urine Glucose (UA) Negative (Negative) Urine Ketones Negative (Negative) Urine Blood Trace H (Negative) Urine Nitrite Negative (Negative) Urine Bilirubin Negative (Negative) Urine Urobilinogen Negative (Negative) Ur Leukocyte Esterase 1+ H (Negative) Urine WBC (Auto) 5-10 H (0-5) /hpf Urine RBC (Auto) 5-10 H (0-4) /hpf U Hyaline Cast (Auto) 1-5 (0-5) /lpf U Epithel Cells (Auto) >30 H (0-5) /lpf Urine Bacteria (Auto) Negative (Negative) Imaging Data Radiologist's Impression: Cervical Spine CT 03/26/21 19:[address] DOSE: HISTORY: Neck pain. fall TECHNIQUE: Multiaxial CT images of the cervical spine were performed and reformatted in the sagittal and coronal plane without the use of contrast. A dose lowering technique was utilized adhering to the principles of ALARA. COMPARISON: None. FINDINGS: No fractures. No subluxation. Prevertebral soft tissues and the C1-C2 interval are intact. No pneumothorax. The right C2-C3 facets are fused. Moderate to severe disc space narrowing within the lower cervical spine. IMPRESSION: No fractures within the cervical spine. ACT 112: Negative or not required by law. Electronically signed by: Thee Covington M.D. 03/26/2021 8:12 PM Chest X-Ray 03/26/21 19:25 XR chest 1V portable HISTORY: Fall. Atypical Chest Pain COMPARISON: Chest 07/03/2016. FINDINGS: The lungs are clear. Cardiac silhouette is normal in size. No pleural effusions. No pneumothorax. IMPRESSION: No acute process. ACT 112: Negative or not required by law. Electronically signed by: Thee Covington M.D. 03/26/2021 7:[address] 03/26/21 19:[address] DOSE: HISTORY: Facial injury. Fall. TECHNIQUE: Multiaxial CT images of the maxillofacial region were performed and reformatted in the coronal plane without the use of contrast. A dose lowering technique was utilized adhering to the principles of ALARA. COMPARISON: None. FINDINGS: The visualized cervical spine, skull base, mandible, pterygoid plates, zygomatic arches, nasal bones, and nasal septum are intact. The orbital floors are maintained. The globes and retrobulbar fat are intact. Small focal depressed fracture within the medial wall of the right orbit which is technically age indeterminate. The fracture measures approximately 1.4 cm in length. There is mild soft tissue thickening at this location this fracture demonstrates 3 mm of depression with herniation of the extraconal fat of the right orbit. IMPRESSION: 1. Small depressed age-indeterminate fracture within the medial wall the right orbit. 2. No additional maxillofacial fractures identified. ACT 112: Negative or not required by law. Electronically signed by: Thee Covington M.D. 03/26/2021 8:[address] 03/26/21 19:[address] DOSE: 881.95 mGy.cm HISTORY: Fall. Headache. TECHNIQUE: Multiaxial CT images of the head were performed without the use of intravenous contrast. Automated exposure control was utilized for this study. A dose lowering technique was utilized adhering to the principles of ALARA. Comparison: Head CT 07/03/2016. Findings: The paranasal sinuses and mastoid air cells are clear. The calvarium and skull base are intact. There is no mass, hematoma, midline shift, acute infarct. White matter hypodensity is nonspecific but suggestive of microvascular ischemic change. The ventricles and sulci demonstrate mild age-related involutional changes. Impression: No significant change compared to the prior study. No acute intracranial abnormality. ACT 112: Negative or not required by law. Electronically signed by: Thee Covington M.D. 03/26/2021 8:08 PM Discharge Plan Visit Data Chief Complaint: Syncope Stated Complaint: PASSED OUT 2X, HARD TIME BREATHING ED Provider: Kevin Perales Discharge Problem: Syncope, Contusion of face, High serum chloride Forms Stand Alone Forms: My [facility] Prescriptions Prescriptions: No Action lovastatin 20 mg tablet 20 mg PO DAILY Qty: 90 RF: 3 venlafaxine [Effexor XR] 37.5 mg capsule,extended release 24hr 75 mg PO DAILY Qty: 90 RF: 3 losartan 25 mg tablet 25 mg PO QAM Qty: 90 RF: 3 omeprazole 20 mg capsule,delayed release(DR/EC) 20 mg PO QAM Qty: 90 RF: 3 diphenhydramine HCl [Benadryl] 25 mg capsule 25 mg PO HS PRN (Reason: Itching) RF: 0 fluticasone propionate 50 mcg/actuation spray,suspension 2 spray intranasal DAILY Qty: 3 RF: 11 hydroxyzine HCl 25 mg tablet 25 mg PO HS RF: 0 Referrals Referrals: Wendy Carrera DO [Primary Care Provider] - Discharge Problem: Syncope Qualifiers: Syncope type: unspecified Qualified Code(s): R55 - Syncope and collapse Contusion of face Qualifiers: Encounter type: initial encounter Qualified Code(s): S00.83XA - Contusion of other part of head, initial encounter
--- NOTE | 2021-03-26 19:58 | XRay Report ---
XR chest 1V portable HISTORY: Fall. Atypical Chest Pain COMPARISON: Chest 07/03/2016. FINDINGS: The lungs are clear. Cardiac silhouette is normal in size. No pleural effusions. No pneumot horax. IMPRESSION: No acute process. ACT 112: Negative or not required by law. Electronically signed by: Thee Covington M.D. 03/26/2021 7:56 PM
[2021-03-26 20:00] LABS: Basophils # (auto) 0.02 K/uL (0-0.2); Basophils % (auto) 0.2 %; Eosinophils # (auto) 0.03 K/uL (0-0.5); Eosinophils % (auto) 0.3 %; Hematocrit (blood only) 38.8 % (37-47); Hemoglobin 12.4 g/dL (12.0-16.0); Immature Granulocytes # (auto) 0.03 K/uL (0.00-0.02); Immature Granulocytes % (auto) 0.3 %; Lymphocytes # (auto) 2.56 K/uL (1.2-3.4); Lymphocytes % (auto) 28.1 %; Mean Corpuscular Hemoglobin 28.3 pg (25-34); Mean Corpuscular Volume 88.6 fL (80-100); Monocytes # (auto) 0.56 K/uL (0.11-0.59); Monocytes % (auto) 6.1 %; Neutrophils # (auto) 5.91 K/uL (1.4-6.5); Platelet Count 271 K/uL (130-400); RDW Standard Deviation 45.3 fL (36.4-46.3); Red Blood Count 4.38 M/uL (4.2-5.4); White Blood Count 9.11 K/uL (4.8-10.8)
[2021-03-26 20:02] LABS: Appearance Urine Clear (Clear); Bacteria Urine Automated Negative (Negative); Bilirubin Urine Negative (Negative); Blood Urine Trace (Negative); Color Urine Yellow; Epithelial Cell Urine Auto >30 /lpf (0-5); Glucose Urine UA Negative (Negative); Ketones Urine Negative (Negative); Leukocyte Esterase Urine 1+ (Negative); Nitrite Urine Negative (Negative); Protein Urine Trace (Negative); Specific Gravity Urine 1.016 (1.000-1.030); Urobilinogen Urine Negative (Negative)
--- NOTE | 2021-03-26 20:09 | CT Scan Report ---
HEAD CT NONCONTRAST CT DOSE: 881.95 mGy.cm HISTORY: Fall. Headache. TECHNIQUE: Multiaxial CT images of the head were performed without the use of intravenous contrast. A utomated exposure control was utilized for this study. A dose lowering technique was utilized adheri ng to the principles of ALARA. Comparison: Head CT 07/03/2016. Findings: The paranasal sinuses and mastoid air cells are clear. The calvarium and skull base are int act. There is no mass, hematoma, midline shift, acute infarct. White matter hypodensity is nonspecifi c but suggestive of microvascular ischemic change. The ventricles and sulci demonstrate mild age-rela sherry involutional changes. Impression: No significant change compared to the prior study. No acute intracranial abnormality. ACT 112: Negative or not required by law. Electronically signed by: Thee Covington M.D. 03/26/2021 8:08 PM
--- NOTE | 2021-03-26 20:13 | CT Scan Report ---
CERVICAL SPINE CT CT DOSE: HISTORY: Neck pain. fall TECHNIQUE: Multiaxial CT images of the cervical spine were performed and reformatted in the sagittal and coronal plane without the use of contrast. A dose lowering technique was utilized adhering to th e principles of ALARA. COMPARISON: None. FINDINGS: No fractures. No subluxation. Prevertebral soft tissues and the C1-C2 interval are intact. No pneumothorax. The right C2-C3 facets are fused. Moderate to severe disc space narrowing within the lower cervical spine. IMPRESSION: No fractures within the cervical spine. ACT 112: Negative or not required by law. Electronically signed by: Thee Covington M.D. 03/26/2021 8:12 PM
--- NOTE | 2021-03-26 20:19 | CT Scan Report ---
MAXILLOFACIAL CT CT DOSE: HISTORY: Facial injury. Fall. TECHNIQUE: Multiaxial CT images of the maxillofacial region were performed and reformatted in the cor onal plane without the use of contrast. A dose lowering technique was utilized adhering to the princ iplmarina of MILES. COMPARISON: None. FINDINGS: The visualized cervical spine, skull base, mandible, pterygoid plates, zygomatic arches, na hilary bones, and nasal septum are intact. The orbital floors are maintained. The globes and retrobulbar fat are intact. Small focal depressed fracture within the medial wall of the right orbit which is te chnically age indeterminate. The fracture measures approximately 1.4 cm in length. There is mild soft tissue thickening at this location this fracture demonstrates 3 mm of depression with herniation of the extraconal fat of the right orbit. IMPRESSION: 1. Small depressed age-indeterminate fracture within the medial wall the right orbit. 2. No additional maxillofacial fractures identified. ACT 112: Negative or not required by law. Electronically signed by: Thee Coivngton M.D. 03/26/2021 8:17 PM
[2021-03-26 20:22] LABS: Albumin Level 3.4 gm/dl (3.4-5.0); BUN Creatinine Ratio 10.5 (10-20); Calcium 9.5 mg/dl (8.5-10.1); Creatinine Clr Calc Pharmacy 62.1 ml/min; Est GFR (African American) 71.4 ml/min; Est GFR (Non-African American) 61.6 ml/min; Potassium 3.5 mmol/L (3.5-5.1)
[2021-03-26 20:26] LABS: Albumin Globulin Ratio 0.7 (0.9-2); Bilirubin,Total 0.3 mg/dl (0.2-1); Globulin 4.8 gm/dl (2.5-4.0); Total Protein 8.2 gm/dl (6.4-8.2); Troponin I 0.032 ng/ml (0-0.045)
--- NOTE | 2021-03-26 23:04 | History & Physical Report ---
Date of Service March 26, 2021 Assessment & Plan (1) Syncope: Plan: 66 y/o F w/ significant PAD hx and 60% L carotid artery stenosis who presents w/ new onset syncope x 2 episodes today w/ bilateral amaurosis fugax in between the episodes, concerning for vertebrobasilar insufficiency. Stable. - considered left carotid artery stenosis and subclavian steal. considered vasovagal, but less likely given her hx of multiple episodes of near syncope in past that resolved after her lower extremity arterial stents. - less concerning for classic ischemic stroke given lack of AMS or focal neuro deficits of extremities or speech. Head CT w/o acute changes. CT C spine w/o acute fracture. - less likely atypical migraine, seizure, or infection - stroke w/o tpa orderset - CTA head and neck - monitor on telemetry - check orthostatic BP and compare BP of both arms Patient declines all antiplatelet agents. Pros/cons of antiplatelet agents discussed w/ patient and highly advised. Patient states she has GI upset w/ aspirin, has tried different formulations, and does not want to try Plavix as she has not taken it before. Advised high intensity statin, patient refused. (2) Hypertension: Plan: - continue home regimen - avoid PRN antihypertensives; permissive HTN (3) Fall: Plan: - hold chemoppx. no evidence of head bleed at this time - mentation at baseline (4) Orbital fracture: Plan: - will need outpatient OMFS f/u - not causing entrapment, reassuring - considered prophylactic abx given proximity to sinuses (5) Hyperlipidemia: Plan: - continue home lovastatin 20 (low intensity). advised high intensity statin, patient refused. can alternative consider 80mg lovastatin as a moderate in tensity.. (6) Left carotid stenosis: Plan: - cta neck as above (7) Anxiety: Plan: - continue home Effexor. hold home hydroxyzine. (8) GERD without esophagitis: Plan: - continue home omeprazole (9) Peripheral vascular disease: Plan: - w/ hx of iliac stents. not on antiplatelet agents Plan: FEN/GI: NPO. maintenance IVF ppx: SCDs only. Hold chemoppx in context of head injury code: full dispo: med/surg tele History of Present Illness Chief Complaint: syncope Primary Care Provider: DO Radha Dunn is a 66 y/o female w/ PMHx of HTN, HLD, PVD (aortoiliac occlusive disease w/ R iliac stent), carotid stenosis (60% L ICA), IBS, GERD, and anxiety/depression who presents w/ 2 episodes of new onset syncopal episodes today. She woke from sleep at 530AM and felt she had some difficulty catching her breath. When she attempted to stand up, she had syncopal episode, fell onto her bed and woke up shortly after. Denied sweating or headache. She then noticed that her vision was completely black in both eyes. She tried to get out of bed and had a second syncopal episode. When she awoke, she was on floor and it was daylight, so presumably at least an hour had passed. Her occiput and right periorbital region hurt 2/2 her hitting her head against the TV stand. Denies recent dehydration. In past, she has had multiple near-syncopal episodes, but never full syncope. These symptoms all resolved in 2014 after her PVD stent in her iliac. Her PVD related pains are at baseline. Denies of hx arrhythmia, seizure, stroke, SC, DM. Former heavy smoker, quit years ago. Denies illicit substances. Denies family hx of syncope, seizure, or arrhythmia. Denies any seizure like activity. Maternal aunt had arrhythmia and cardiac shunt. ED course: Maxillofacial CT: Small depressed age-indeterminate fracture within the medial wall of the right orbit. home meds: hydroxyzine qhs, losartan qam, lovastatin, omeprazole, Effexor XR (37.5 mg daily w/ prn additional dose) Allergies Allergy/AdvReac Type Severity Reaction Status Date / Time atenolol Allergy Intermediate Gastrointestinal Verified 03/26/21 21:26 Upset ciprofloxacin Allergy Intermediate Gastrointestinal Verified 03/26/21 21:26 Upset fish oil Allergy Intermediate Gastrointestinal Verified 03/26/21 21:26 Upset fluoxetine Allergy Intermediate swelling Verified 03/26/21 21:26 and rash metronidazole Allergy Unknown swelling/hi Verified 03/26/21 21:26 ves aspirin AdvReac Mild GI upset Verified 03/27/21 01:14 [id number] Reductase AdvReac Mild rash and Verified 03/27/21 01:14 Inhibitor GI upset Home Medications Medication Instructions Recorded Confirmed Type diphenhydramine HCl 25 mg capsule 25 mg PO HS PRN cap 04/15/20 03/26/21 History (Benadryl) lovastatin 20 mg tablet 20 mg PO DAILY #90 tab 11/29/20 03/26/21 Rx fluticasone propionate 50 2 spray INTRANASAL DAILY #3 ea 12/05/20 03/26/21 Rx mcg/actuation nasal spray,suspension losartan 25 mg tablet 25 mg PO QAM #90 tab 01/17/21 03/26/21 Rx venlafaxine 37.5 mg 75 mg PO DAILY #90 cap 01/17/21 03/26/21 Rx capsule,extended release 24 hr (Effexor XR) omeprazole 20 mg capsule,delayed 20 mg PO QAM #90 cap 03/07/21 03/26/21 Rx release hydroxyzine HCl 25 mg tablet 25 mg PO HS 03/26/21 03/26/21 History amoxicillin 875 mg-potassium 1 tab PO Q12H #14 tab 03/27/21 Rx clavulanate 125 mg tablet (Augmentin) Past Med/Surg History Medical History (Updated 03/27/21 @ 15:15 by Dell Mascorro MD) Abdominal aortic atherosclerosis pt unaware Allergic rhinitis Anxiety Arthritis Chronic low back pain Chronic neck pain Depression Dysphagia resolved> dilation with EGD GERD without esophagitis Hemorrhoids Hiatal hernia Hyperlipidemia no meds due to side effects of meds Hypertension Irritable bowel syndrome (IBS) Left carotid stenosis just follows PCP Lower back pain Lumbar spinal stenosis Peripheral vascular disease Post traumatic stress disorder (PTSD) Superior mesenteric artery atherosclerosis pt unaware Surgical History History of appendectomy History of cholecystectomy History of esophagogastroduodenoscopy (EGD) 07/03/2020 [facility] History of tooth extraction Hx of colonoscopy 06/19/2020 [facility] Hx of hysterectomy S/P arterial stent bilat iliac stents, 2014 and 2016 > [facility] S/P hemorrhoidectomy (10/11/20) Hemorrhoidectomy - Vasyl Sheth DO S/P tubal ligation Family History Father Coronary heart disease Myocardial infarction Kidney disease Mother Kidney disease Coronary heart disease Hypertension Cancer Aunt Amputated toe Denies family history of Ovarian cancer Prostate cancer Breast cancer Social History Smoking Status: Current some day smoker Age Started Using Tobacco: 26; Age Quit Using Tobacco: 60; packs per day: 1.5; Second Hand Exposure: No; Hx Alcohol Use: No Hx Substance Use: No Preferred Language: Faroese Communication Ability: Effective Visual Impairment: No Limitations Hearing Ability: Normal 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 Beliefs That Will Affect Care: None marital status: Single Current Living Situation: Alone current occupational status: retired Other Information That Helps Us Care for You: No Feels Safe at Home: Yes Safety Concerns: Feels Safe At This Time Childhood Exposure to Second-Hand Smoke: Yes caffeine: Yes during the past year weight has: increased > 10 lbs Dental Care, Regularly: Yes Physical Activity Frequency: Other Physical Activity Frequency Comment: limited due to physical issues Seatbelt Use: always Sunscreen Use: No Assistive Devices: None Review of Systems Review of Systems: All systems reviewed & are unremarkable except as noted in HPI & below Constitutional: Denies fever, chills, weight change Eyes: Denies blurry vision, vision changes ENT: Denies sore throat, sinus pain Cardiovascular: Denies chest pain, palpitations Respiratory: Denies shortness of breath Gastrointestinal: Denies abdominal pain, nausea, vomiting, constipation, diarrhea Genitourinary: Denies urinary symptoms including dysuria Musculoskeletal: Denies weakness, muscle aches/pain, joint aches/pain Neurological: Denies numbness, tingling, focal weakness. Head hurts at eye socket and occiput. Physical Exam Physical Exam: General: A&Ox4. NAD. Cooperative. Conversational. No confusion. HEENT: TTP occiput, just above leta skin tag. Mild erythema of skin noted. Normocephalic. EOMI. No nystagmus. R eye has mild discomfort during extraocular movement testing. L 2/6 bruit at ICA. Neg Hudson's neg raccoon eyes. No tongue- bite leta. Pulm: CTAB. -wheezes, -rales, -rhonchi. No respiratory distress. Cardiac: RRR, -mrg. Radial pulses intact and symmetrical. Abdominal: Nontender, nondistended, soft. Integ: Mild abrasion on top of nosebridge. 1inch linear lac right forehead. Mild erythema of R upper cheek. Mild ttp at R cheek. Mod ttp at R periorbital region. Neuro: No focal neuro deficits. CN II-XII intact. Normal strength and sensation of extremities. No dysmetria. Results & Data Results & Data ([facility]) Vital Signs (Past 12 Hours) Vital Signs vitals reviewed. Temp Pulse Pulse Resp BP BP Pulse Ox 03/26/21 22:32 71 20 180/71 H 98 03/26/21 22:03 72 20 168/116 H 100 03/26/21 20:58 71 20 149/87 H 97 03/26/21 20:44 69 20 137/73 97 03/26/21 19:43 95 H 20 126/99 94 03/26/21 19:35 98 03/26/21 19:32 68 20 159/103 H 98 03/26/21 17:41 36.8 C 80 20 145/97 H 98 Laboratory Results comparison to 11/28/20 labs. wbc 6.42->9.11. Hb stable 12.4. electrolytes stable. alk phos mild elev 158. 03/26/21 19:30 03/26/21 19:30 Cardiac Enzymes 03/26/21 Range/Units 19:30 AST 18 (15-37) U/L Troponin I 0.032 (0-0.045) ng/ml CBC 03/26/21 Range/Units 19:30 WBC 9.11 (4.8-10.8) K/uL RBC 4.38 (4.2-5.4) M/uL Hgb 12.4 (12.0-16.0) g/dL Hct 38.8 (37-47) % Plt Count 271 (130-400) K/uL Neut # (Auto) 5.91 (1.4-6.5) K/uL Lymph # (Auto) 2.56 (1.2-3.4) K/uL [place] # (Auto) 0.56 (0.11-0.59) K/uL Eos # (Auto) 0.03 (0-0.5) K/uL Baso # (Auto) 0.02 (0-0.2) K/uL Comprehensive Metabolic Panel 03/26/21 Range/Units 19:30 Sodium 141 (136-145) mmol/L Potassium 3.5 (3.5-5.1) mmol/L Chloride 109 H (98-107) mmol/L Carbon Dioxide 25 (21-32) mmol/L BUN 10 (7-18) mg/dl Creatinine 0.96 (0.6-1.2) mg/dl Glucose 97 (70-99) mg/dl Calcium 9.5 (8.5-10.1) mg/dl AST 18 (15-37) U/L ALT 13 (12-78) U/L Alkaline Phosphatase 158 H (45-117) U/L Total Protein 8.2 (6.4-8.2) gm/dl Albumin 3.4 (3.4-5.0) gm/dl Intake and Output 03/26/21 03/26/21 03/27/21 14:59 22:59 06:59 Other: Weight 85.2 kg Weight Measurement Method Chair Scale Patient Weight 03/27/21 06:59 Weight 85.2 kg Diagnostic Findings Cervical Spine CT 03/26/21 19:[address] DOSE: HISTORY: Neck pain. fall TECHNIQUE: Multiaxial CT images of the cervical spine were performed and reformatted in the sagittal and coronal plane without the use of contrast. A dose lowering technique was utilized adhering to the principles of ALARA. COMPARISON: None. FINDINGS: No fractures. No subluxation. Prevertebral soft tissues and the C1-C2 interval are intact. No pneumothorax. The right C2-C3 facets are fused. Moderate to severe disc space narrowing within the lower cervical spine. IMPRESSION: No fractures within the cervical spine. ACT 112: Negative or not required by law. Electronically signed by: Thee Covington M.D. 03/26/2021 8:12 PM Chest X-Ray 03/26/21 19:25 XR chest 1V portable HISTORY: Fall. Atypical Chest Pain COMPARISON: Chest 07/03/2016. FINDINGS: The lungs are clear. Cardiac silhouette is normal in size. No pleural effusions. No pneumothorax. IMPRESSION: No acute process. ACT 112: Negative or not required by law. Electronically signed by: Thee Covington M.D. 03/26/2021 7:[address] 03/26/21 19:[address] DOSE: HISTORY: Facial injury. Fall. TECHNIQUE: Multiaxial CT images of the maxillofacial region were performed and reformatted in the coronal plane without the use of contrast. A dose lowering technique was utilized adhering to the principles of ALARA. COMPARISON: None. FINDINGS: The visualized cervical spine, skull base, mandible, pterygoid plates, zygomatic arches, nasal bones, and nasal septum are intact. The orbital floors are maintained. The globes and retrobulbar fat are intact. Small focal depressed fracture within the medial wall of the right orbit which is technically age indeterminate. The fracture measures approximately 1.4 cm in length. There is mild soft tissue thickening at this location this fracture demonstrates 3 mm of depression with herniation of the extraconal fat of the right orbit. IMPRESSION: 1. Small depressed age-indeterminate fracture within the medial wall the right orbit. 2. No additional maxillofacial fractures identified. ACT 112: Negative or not required by law. Electronically signed by: Thee Covington M.D. 03/26/2021 8:[address] 03/26/21 19:[address] DOSE: 881.95 mGy.cm HISTORY: Fall. Headache. TECHNIQUE: Multiaxial CT images of the head were performed without the use of intravenous contrast. Automated exposure control was utilized for this study. A dose lowering technique was utilized adhering to the principles of ALARA. Comparison: Head CT 07/03/2016. Findings: The paranasal sinuses and mastoid air cells are clear. The calvarium and skull base are intact. There is no mass, hematoma, midline shift, acute infarct. White matter hypodensity is nonspecific but suggestive of microvascular ischemic change. The ventricles and sulci demonstrate mild age-related involutional changes. Impression: No significant change compared to the prior study. No acute intracranial abnormality. ACT 112: Negative or not required by law. Electronically signed by: Thee Covington M.D. 03/26/2021 8:08 PM ECG Additional Comments: ecg read pending. per my interpretation: ecg NSR 74 w/ frequent PVCs. No significant change from 10/03/20 ecg Code Status & VTE Plan Code Status full VTE Prophylaxis Plan VTE Prophylaxis will be ordered: Yes Reason for no VTE drug order: Contraindicated Supervising Physician Co-Signing Physician Notes Attending addendum: I have physically seen this patient, have supervised the medical residents activities, and agree with the H&P unless as otherwise noted. Assessment and Plan: Right orbit medial wall fracture- Status post fall- Will need to follow with maxillofacial surgeon the outpatient setting Syncope- The patient will be admitted to telemetry for serial cardiac enzymes, serial EKG's, cardiac rhythm monitoring and a 2-D echocardiogram with Dopplers. Stroke that TPA order set permissive hypertension Remaining orders and notations as noted Resident Activity Tracking Resident Involvement: Resident Care Provided Care Provided: Adult [facility] Medicine
[2021-03-27] MEDS ORDERED: ACETAMINOPHEN 325 MG TAB PO PRN (01:51)
[2021-03-27] MEDS ORDERED: PHARMACIST DISCHARGE MED REC CONSULT PRN (01:51)
[2021-03-27] MEDS ORDERED: POLYETHYLENE (MIRALAX) 17 GM PACK PO PRN (01:51)
[2021-03-27] MEDS ORDERED: ONDANSETRON INJ 2 MG/ML 2 ML VIAL IV PRN (01:51)
[2021-03-27] MEDS: LACTATED RINGER'S 1,000 ML IV SCH ×2 (01:59→09:37)
[2021-03-27 05:53] LABS: Basophils # (auto) 0.03 K/uL (0-0.2); Basophils % (auto) 0.4 %; Eosinophils # (auto) 0.14 K/uL (0-0.5); Hematocrit (blood only) 34.3 % (37-47); Hemoglobin 11.1 g/dL (12.0-16.0); Lymphocytes # (auto) 2.77 K/uL (1.2-3.4); Mean Corpuscular Hemoglobin 28.2 pg (25-34); Mean Corpuscular Hgb Conc 32.4 g/dL (32-36); Mean Corpuscular Volume 87.3 fL (80-100); Mean Platelet Volume 11.6 fL (7.4-10.4); Monocytes # (auto) 0.46 K/uL (0.11-0.59); Monocytes % (auto) 6.6 %; Neutrophils # (auto) 3.52 K/uL (1.4-6.5); Platelet Count 212 K/uL (130-400); RDW Standard Deviation 45.3 fL (36.4-46.3); Red Blood Count 3.93 M/uL (4.2-5.4); White Blood Count 6.92 K/uL (4.8-10.8)
[2021-03-27 06:13] LABS: Albumin Level 2.8 gm/dl (3.4-5.0); BUN Creatinine Ratio 12.3 (10-20); Calcium 8.8 mg/dl (8.5-10.1); Creatinine Clr Calc Pharmacy 68.5 ml/min; Est GFR (African American) 78.3 ml/min; Est GFR (Non-African American) 67.5 ml/min; Magnesium 2.3 mg/dl (1.8-2.4); Potassium 3.5 mmol/L (3.5-5.1)
[2021-03-27 06:18] LABS: Albumin Globulin Ratio 0.7 (0.9-2); Bilirubin,Total 0.4 mg/dl (0.2-1); Globulin 4.2 gm/dl (2.5-4.0)
[2021-03-27 07:27] LABS: Estimated Average Glucose 111 mg/dl; Hemoglobin A1C 5.5 % (4.5-5.6)
--- NOTE | 2021-03-27 08:11 | Hospitalist Progress Note ---
Date of Service March 27, 2021 Assessment & Plan Admission and Anticipated Discharge Date Admission Date: March 26, 2021 Results & Data Results & Data ([facility]) Vital Signs (Past 12 Hours) Vital Signs Temp Pulse Resp BP Pulse Ox 03/27/21 05:25 36.8 C 71 20 103/86 98 03/27/21 01:58 69 20 128/94 95 03/27/21 01:21 71 20 179/96 H 97 03/27/21 00:52 76 20 167/90 H 97 03/27/21 00:25 71 20 165/93 H 96 03/27/21 00:04 74 20 165/93 H 99 03/26/21 23:11 80 20 165/93 H 98 03/26/21 22:32 71 20 180/71 H 98 03/26/21 22:03 72 20 168/116 H 100 03/26/21 20:58 71 20 149/87 H 97 03/26/21 20:44 69 20 137/73 97
[2021-03-27] MEDS ORDERED: LOVASTATIN 20 MG TAB PO SCH (09:00)
[2021-03-27] MEDS ORDERED: LOSARTAN POTASSIUM 25 MG TAB PO SCH (09:00)
[2021-03-27] MEDS ORDERED: PANTOprazole 40 MG TAB PO SCH (09:00)
[2021-03-27] MEDS ORDERED: VENLAFAXINE HCL XR 37.5 MG CAPXR PO SCH (09:00)
--- NOTE | 2021-03-27 09:52 | Discharge Summary ---
Date of Service March 27, 2021 Admission HPI Per Admitting Provider Radha Hunt is a 66 y/o female w/ PMHx of HTN, HLD, PVD (aortoiliac occlusive disease w/ R iliac stent), carotid stenosis (60% L ICA), IBS, GERD, and anxiety/depression who presents w/ 2 episodes of new onset syncopal episodes today. She woke from sleep at 530AM and felt she had some difficulty catching her breath. When she attempted to stand up, she had syncopal episode, fell onto her bed and woke up shortly after. Denied sweating or headache. She then noticed that her vision was completely black in both eyes. She tried to get out of bed and had a second syncopal episode. When she awoke, she was on floor and it was daylight, so presumably at least an hour had passed. Her occiput and right periorbital region hurt 2/2 her hitting her head against the TV stand. Denies recent dehydration. In past, she has had multiple near-syncopal episodes, but never full syncope. These symptoms all resolved in 2014 after her PVD stent in her iliac. Her PVD related pains are at baseline. Denies of hx arrhythmia, seizure, stroke, VA, DM. Former heavy smoker, quit years ago. Denies illicit substances. Denies family hx of syncope, seizure, or arrhythmia. Denies any seizure like activity. Maternal aunt had arrhythmia and cardiac shunt. ED course: Maxillofacial CT: Small depressed age-indeterminate fracture within the medial wall of the right orbit. home meds: hydroxyzine qhs, losartan qam, lovastatin, omeprazole, Effexor XR (37.5 mg daily w/ prn additional dose) Principal Diagnosis Syncope Discharge Exam Normal Orthostatic vital signs per RN GENERAL: A&Ox3. NAD. HEENT: PERRL, EOMI. Moist mucous membranes. NECK: No JVD. No lymphadenopathy. CHEST/LUNGS: CTAB A/P. No crackles, wheezes, rales, rhonchi. HEART: RRR. No m/g/r. No carotid bruits. ABDOMEN: NT/ND, soft. BS+ x4 EXTREMITIES: No cyanosis, no clubbing, no edema NEUROLOGIC: No FND. CN II-XII grossly intact. Discharge Data Allergies Allergy/AdvReac Type Severity Reaction Status Date / Time atenolol Allergy Intermediate Gastrointestinal Verified 03/26/21 21:26 Upset ciprofloxacin Allergy Intermediate Gastrointestinal Verified 03/26/21 21:26 Upset fish oil Allergy Intermediate Gastrointestinal Verified 03/26/21 21:26 Upset fluoxetine Allergy Intermediate swelling Verified 03/26/21 21:26 and rash metronidazole Allergy Unknown swelling/hi Verified 03/26/21 21:26 ves aspirin AdvReac Mild GI upset Verified 03/27/21 01:14 [id number]-MqF Reductase AdvReac Mild rash and Verified 03/27/21 01:14 Inhibitor GI upset Consultations 03/26/21 21:50 ED Decision to Admit Stat Ordered Studies 03/26/21 19:25 CT cervical spine wo con Stat CT facial bones wo con Stat CT head/brain wo con Stat 03/27/21 01:51 CT angio head w con Routine CT angio neck with con Routine 03/27/21 07:25 MR brain wo/w con Routine Hospital Course (1) Syncope: 66 y/o F w/ significant PAD hx and 60% L carotid artery stenosis who presents w/ new onset syncope x 2 episodes today w/ bilateral amaurosis fugax in between the episodes, concerning for vertebrobasilar insufficiency. Stable. - History and symptoms consistent with vasovagal vs orthostatic hypotension - Despite normal orthostatics in hospital, did receive IV fluids prior to check - Head CT w/o acute changes. - CTA H/N with 50% stenosis of left subclavian as below (2) Hypertension: - continue home regimen (3) Fall: - Fracture as below - mentation at baseline (4) Orbital fracture: - CT face: Small depressed age-indeterminate fracture within the medial wall the right orbit. - will need outpatient OMFS f/u at 10-14 days - Augmentin 875mg PO BID x7 days due to proximity to sinuses - not causing entrapment, reassuring (5) Hyperlipidemia: - continue home lovastatin 20 (low intensity). advised high intensity statin, patient refused - Recommend outpatient discussion (6) Left carotid stenosis: - cta neck as above (7) Anxiety: - continue home Effexor. hold home hydroxyzine. (8) GERD without esophagitis: - continue home omeprazole (9) Peripheral vascular disease: - w/ hx of iliac stents. not on antiplatelet agents, refusing treatment with these (10) Subclavian artery stenosis: - CTA H/N with findings of moderate atherosclerotic vascular disease without aneurysm, dissection, high-grade stenosis or arterial occlusion. Prominent plaque at the proximal subclavian artery results in 50% luminal narrowing. Additionally, there is ulcerative plaque of the left subclavian artery and left carotid bulb. Moderate stenosis of the P1 segment of the left posterior cerebral artery. - Less likely her symptoms are related to subclavian steal as they occurred immediately after standing up from layig position, not related to left arm exercise/use - Recommend follow-up with vascular surgery for continue discussion of her PAD Total Time Total Time Spent Total Time Spent (In Minutes): Less than 30 Discharge Plan Discharge Items Patient Disposition: Home - Self-Care Reason For Visit: SYNCOPE Discharge Diagnosis: Syncope Activity: Per Instructions section Non-emergency contact: Primary Care Provider Call non-emergency contact if: your symptoms worsen Follow-up/Referrals: Wendy Carrera, [Primary Care Provider] - Alexis Aparicio, ALYSSA [Physician] - 04/07/21 (Right orbital fracture. Discussed with Dr. Aparicio f/u in 10-14 days.) Diet: Heart Healthy Addtl Attending Provider Instructions: You came to [facility] due to 2 episodes of fainting and vision loss. You had CT scan of your head, which was negative for any acute stroke. You had a CT of the head and neck showing a 50% occlusion of your left subclavian artery. This type of narrowing can sometimes cause symptoms similar to what you experienced but they are typically associated with use of/exercise of the arm on the affected side. Nontheless, we recommend you follow up with your vascular surgeon, Dr. Louie, to discuss these new findings. Since your passing out occurred immediately after standing up from laying in bed, these were likely vasovagal or orthostatic syncope. Essentially, it is likely that you stood up too quickly on both of these occasions and the blood flow to your brain may have diminished transiently leading to fainting episodes. The best way to avoid this in the future is to stay well hydrated with at least 60oz of fluids daily, and avoid standing up quickly from laying or sitting posi tions. Due to your fall you did sustain an orbital fracture, which will not require surgical intervention at this point. However, due to the proximity of the fracture to your sinuses, we will prescribe oral antibiotics with Augmentin. Please refrain from blowing your nose, as this may cause significant pressure in the are which could worsen the problem. Additionally, you will need to follow up with Maxillofacial Surgery within the next 10-14 days in the outpatient setting. We recommend follow-up with your PCP for your chronic medical conditions, and with your vascular surgeon for monitoring of your carotid stenosis and subclavian stenosis as above. Pending Studies at Discharge: No Stand-Alone Forms: My [facility] [employer], Smoking Cessation Medications and DC Order Prescriptions: New amoxicillin-pot clavulanate [Augmentin] 875-125 mg tablet 1 tab PO Q12H Qty: 14 RF: 0 Continued lovastatin 20 mg tablet 20 mg PO DAILY Qty: 90 RF: 3 venlafaxine [Effexor XR] 37.5 mg capsule,extended release 24hr 75 mg PO DAILY Qty: 90 RF: 3 losartan 25 mg tablet 25 mg PO QAM Qty: 90 RF: 3 omeprazole 20 mg capsule,delayed release(DR/EC) 20 mg PO QAM Qty: 90 RF: 3 diphenhydramine HCl [Benadryl] 25 mg capsule 25 mg PO HS PRN (Reason: Itching) RF: 0 fluticasone propionate 50 mcg/actuation spray,suspension 2 spray intranasal DAILY Qty: 3 RF: 11 hydroxyzine HCl 25 mg tablet 25 mg PO HS RF: 0 Discharge Orders: Discharge Order (Routine); Ordered 03/27/21 Ordered By: Dell Mascorro Admission Data Admit Date/Time: 03/26/21 23:57 Attending Provider: Kevin Juarez Admit Provider: Palomo Townsend Primary Care Provider: Wendy Carrera Other Providers: Nahid Avina Other Interventions: Discharge Summary Assessment (RN) Last Done: 03/27/21 15:32 Supervising Physician Co-Signing Physician Notes I personally examined the patient and verified all allen points of history and exam, discussed case, and agree with decision making with Dr Adams. Feeling better. No further symptoms, face still hurts some. No other new complaints. Feels very much up to going home. Vitals noted, in general she is awake and alert pleasant no distress. HEENT normocephalic faint bruising around eye but EOMI eye without hemorrhage, and vision appears grossly intact, mucous membranes moist. Breathing unlabored no accessory muscle use good effort. breathing unlabored no accessory muscles good effort skin no rashes no pallor or icterus recurrent syncope - most likely orthostatic given HPI and resolution (had IV fluids). vascular phenomena considered but with 50% stenoses at the worst and not using arm at time of syncope (and <50% vertebral disease) subclavian steal highly unlikely; no focal sx to suggest TIA/stroke pathology. echo without significant valvular abnormalities. HPI most c/w orthostatic. no noted rhythm issues. stable for home, encouraged better PO hydration. PCP f/u orbital fracture - augmentin, maxillofacial f/u in office, no need for intervention at this time. otherwise as above Resident Activity Tracking Resident Involvement: Resident Care Provided Care Provided: Adult Hospital Medicine
[2021-03-27] MEDS ORDERED: PERFLUTREN LIPID MICROSPHERE (DEFINITY) IV ONE (10:23)
[2021-03-27] MEDS ORDERED: OPTIRAY 320 125ml IV ONE (14:06)
--- NOTE | 2021-03-27 14:30 | CT Scan Report ---
CT angio neck with con, CT angio head w con CLINICAL HISTORY: 66 years-old Female with syncope, amaurosis fugax. Acute syncope with strokelike symptoms COMPARISON STUDY: Head CT 03/26/2021 TECHNIQUE: Following the IV administration of 120 mL of Optiray, CT angiogram of the head and neck wa s performed from the aortic arch to the skull apex. Images are reviewed in the axial, sagittal, and c oronal planes. 3-D MIPS images are created and assessed. IV contrast was administered without complic ation. All measurements were calculated based on NASCET criteria. A dose lowering technique was util ized adhering to the principles of ALARA. CT DOSE: 432.46 mGy.cm FINDINGS: Moderate atherosclerotic plaque of the thoracic aortic arch. Multifocal luminal narrowing of the prox imal left subclavian artery includes 50% stenosis at the proximal portion on image 46 series 4. There are several small associated saccular outpouchings suggestive of ulcerative plaques. Mild luminal na rrowing at the origin of the right subclavian artery. Innominate artery is patent. Patent common burns tid arteries. Moderate atherosclerotic plaque of the right carotid bulb results in less than 50% sten osis. Extensive atherosclerotic plaque of the left carotid bulb and proximal left ICA with a 3.5 mm u lcerative plaque on image 189. There is less than 50% stenosis. Calcified plaque of the cavernous and supraclinoid segments without high-grade stenosis. The middle and anterior cerebral arteries are pat ent. There is approximately 50% luminal narrowing at the origin of the left vertebral artery secondar y to atherosclerotic plaque. The vertebral arteries are codominant and patent. There is moderate star nal irregularity of the distal V2 segment left vertebral artery at the level of C2 on image 213, like ly secondary to atherosclerotic vascular disease. The basilar and right posterior cerebral artery are patent. There is moderate luminal narrowing of the P1 segment left posterior cerebral artery on imag e 101 series 3. The cerebral venous sinuses are patent. There is no abnormal intracranial enhancement . Lung apices are clear. No pneumothorax. Unremarkable thyroid. The soft tissues are within normal limi ts. Degenerative changes of the spine. IMPRESSION: 1. Moderate atherosclerotic vascular disease without aneurysm, dissection, high-grade stenosis or art erial occlusion. 2. Prominent plaque at the proximal subclavian artery results in 50% luminal narrowing. Additionally, there is ulcerative plaque of the left subclavian artery and left carotid bulb. 3. Moderate stenosis of the P1 segment of the left posterior cerebral artery. ACT 112: Negative or not required by law. The above report was generated using voice recognition software. It may contain grammatical, syntax o r spelling errors. Electronically signed by: Sean Lux M.D. 03/27/2021 2:29 PM
--- NOTE | 2021-03-27 14:30 | XCELERA ---
[id number] \\[id number]
[2021-03-27] MEDS ORDERED: STROKE PATIENT DISCHARGE STA (15:12)
--- NOTE | 2021-03-27 18:21 | Billing Data ---
Date of Service March 27, 2021 Coding Level of Care Code 35298 OBS Care - Discharge
--- NOTE | 2021-03-28 05:56 | Electrocardiogram Report ---
Test Reason : Blood Pressure : / mmHG Vent. Rate : 074 BPM Atrial Rate : 074 BPM P-R Int : 136 ms QRS Dur : 098 ms QT Int : 404 ms P-R-T Axes : 060 -41 027 degrees QTc Int : 448 ms Sinus rhythm with frequent Premature ventricular complexes Left axis deviation Minimal voltage criteria for LVH, may be normal variant Nonspecific ST abnormality Abnormal ECG When compared with ECG of 03-OCT-2020 13:23, No significant change was found Confirmed by Vinh Mccracken ([id number]) on 03/28/2021 5:55:32 AM Referred By: REFERRED SELF Confirmed By:Vinh Mccracken
--- NOTE | 2021-03-28 21:51 | Billing Data ---
Date of Service March 28, 2021 Coding Level of Care Code INT OBSERVATION CARE 70M LVL 3
== END 2021-03-27 15:59 | disposition home or self-care (01) ==
LOC: ED 17:07 → EDINP 17:07 → SUATTDRO 23:57 → EDINP 03-27 01:48